=== PATIENT | female | born 1980 | race Caucasian/White ===

== ENCOUNTER 2022-12-04 06:10 | Emergency (ER) | payer OTHER, SELFPAY ==
--- NOTE | ~2022-12-04 | CT_ITS ---
EXAMINATION: CT ABDOMEN AND PELVIS WITH CONTRAST CLINICAL INFORMATION: Bilateral flank pain, fevers and urinary tract infection COMPARISON: None available. TECHNIQUE: Multidetector volumetric images were obtained from the superior aspect of the liver through the pubic symphysis following administration 85 mL of Omnipaque 350 intravenous contrast. Sagittal and coronal reformatted images were obtained on the technologist's workstation. Oral contrast: No This CT examination was performed using dose optimization techniques as appropriate, variously including the following: *Automated exposure control *Adjustment of mA and/or kV according to patient size (this includes techniques or standardized protocols for targeted exams where dose is matched to indication/reason for exam; i.e. extremities or head) *Use of iterative reconstruction technique DLP: 334 mGy-cm FINDINGS: A shunt catheter extends from above the level of this abdominal CT and terminates in the right upper quadrant. No collection is detected at the tip of the catheter. LUNG BASES: There is a small right pleural effusion. LIVER, GALLBLADDER, AND BILIARY TREE: The liver is normal in size, shape, and attenuation. No focal hepatic lesion or biliary ductal dilatation is present. The gallbladder is unremarkable with no evidence of radiopaque gallstones, gallbladder wall thickening, or obvious pericholecystic inflammatory changes. PANCREAS: There is a 13 mm low-density mass in the medial limb of the left adrenal gland. SPLEEN: Unremarkable. ADRENAL GLANDS: Unremarkable. KIDNEYS AND URETERS: The kidneys are normal in size, shape, and attenuation. No hydronephrosis, hydroureter, or calculi seen. No perinephric stranding. BLADDER: The urinary bladder is incompletely distended but markedly irregular and thickened, and there is a suggestion of an ulcerated intraluminal mass along the left lateral wall, with the wall thickened up to 20 mm at this site. There is some infiltration of the adjacent left lateral perivesical fat. GASTROINTESTINAL TRACT: There is marked fecal distention of the rectum, with a luminal diameter measuring up to 7.1 cm. Fecal material also fills the cecum, ascending, transverse and descending colon. No dilated small bowel loops are evident. The appendix is unremarkable. ABDOMINAL WALL: No significant hernia is appreciated. LYMPH NODES: Normal. Nonenlarged bilateral inguinal nodes are present. A 6 mm left external iliac lymph node does not meet size criteria for adenopathy but is notably at the level of the left bladder wall irregularity VASCULAR: Unremarkable. PELVIC VISCERA: The uterus is enlarged, noting a 37 mm ovoid mass in the right side of the myometrium and considerable heterogeneity of the left side of the metacarpal myometrium at the uterine fundus. Endocervical nabothian cyst formation is present. A crenulated follicle is evident in the left adnexa and a few punctate calcifications in the right adnexa, but no suspicious adnexal masses are evident. OSSEOUS STRUCTURES: Right-sided spondylolysis is evident at L5. Spina bifida occulta is evident at the lumbosacral level. CT/CT abdomen pelvis w IV con IMPRESSION: 1. Irregularly thickened urinary bladder with a suggestion of an ulcerating mass and left perivesicle infiltration along the left lateral wall. Although perhaps due to a cystitis, bladder carcinoma is to be excluded. Urologic correlation is recommended. 2. Small right pleural effusion. 3. Left adrenal 13 mm mass is statistically likely to reflect an adenoma. 4. Marked fecal distention of the rectum and fecal filling of the entire colon other than a short segment of collapsed sigmoid. 5. Spina bifida occulta at the lumbosacral level and right spondylolysis at L5. 6. Enlarged heterogeneous uterus with a dominant fibroid in the right side of the fundus and heterogeneous myometrium on the left, either on the basis of small fibroids or perhaps adenomyosis. [employer] correlation and management are recommended. The above urgent findings were discussed with RAJIV Herron at the time of interpretation on 12/04/2022 at 9:35 AM Fleischner guidelines were followed.
[2022-12-04 06:21] VITALS: BP 115/75; PULSE 82; RESP 18; TEMP 37.2; O2SAT 97; BMI 31.5
--- NOTE | 2022-12-04 06:45 | PC.NURSE ---
Pt wheeled in via personal W/C. A&Ox4, reports hematuria, cloudy urine, pain and burning with urination, 10/10 lower ABD pain radiating to bilateral flank pain x 1 month. Pt self catheterize for urine sample. Urine yellow and clear. Urine sample collected and sent to lab.
--- NOTE | 2022-12-04 06:47 | ED_ITS ---
HPI - Female Genitourinary General Chief complaint: Urogenital-Female Stated complaint: bladder pain, possible UTI Time Seen by Provider: 12/04/22 06:37 Source: patient Mode of arrival: ambulatory Limitations: no limitations History of Present Illness HPI Narrative: This is a 41 year old female with a history of spina bifida who straight caths presents w/ hematuria, cloudy urine, dysuria, and flank pain bilaterally radiating to abdomen (subrapubic region) X1 month not improving. Reports flank pain is worse on the right. Patient has tried herbal remedies and OTC with little to no relief. No a/c fevers, chills, cp, sob, nausea, vomiting, headache, vision changes, changes in bowel habits. Related Data Previous Rx's Medication Instructions Recorded docusate sodium 100 mg capsule 100 mg PO BID #20 caps 12/04/22 (Colace) levofloxacin 500 mg tablet 500 mg PO DAILY 7 days #7 tabs 12/04/22 phenazopyridine 100 mg tablet 200 mg (2 x 100 mg) PO TID 2 days 12/04/22 (Pyridium) #6 tabs polyethylene glycol 3350 17 17 g PO BID PRN constipation #238 12/04/22 gram/dose oral powder (Miralax) grams sennosides 8.6 mg tablet (senna) 8.6 mg PO BEDTIME #14 tabs 12/04/22 Allergies Allergy/AdvReac Type Severity Reaction Status Date / Time NSAIDS (Non-Steroidal Allergy Severe ANAPHYLAXIS Verified 12/04/22 06:31 Anti-Inflamma [NSAIDS (NON-STEROIDAL ANTI-INFLAMMA] latex [LATEX] Allergy Unknown ANAPHYLAXIS Verified 12/04/22 06:31 Review of Systems 2 Review of Systems: Constitutional : No Weight loss, No Fever, No Chills, No Fatigue, No Malaise ENT/Mouth : No sore throat, No Rhinorrhea Eyes: No Eye Pain, No Swelling, No Redness Cardiovascular : No Chest Pain, No SOB, No Dyspnea on Exertion, No Orthopnea, No Edema, No Palpitations Respiratory : No Cough, No Sputum, No Wheezing Gastrointestinal : No Nausea, No Vomiting, No Diarrhea, No Constipation, + abdominal Pain, No Hematochezia, No Melena Genitourinary : + Dysuria, + Urinary Frequency, + Hematuria, Musculoskeletal : No joint pain, No Myalgias, No Joint Swelling Skin : No Skin Lesions, No rash Neuro : No Weakness, No Numbness, No Dizziness, No Headache Psych : No Anxiety/Panic, No Depression All other systems reviewed and are negative Yes all other systems are reviewed and are negative [facility] Past Medical History Attestation statement: The following information was validated with the patient. Source: old records reviewed and nursing notes reviewed Social History Social History Alcohol intake: current Alcohol intake frequency: holidays/special occasions only Smoked in Last 30 Days: No Use of substances other than those prescribed or required for medical reasons: Yes Substance Use Type: Marijuana Advance Directives: No Advance Directives Information Provided: Yes Patient : No Physical Exam 2 Vital Signs: Vital Signs: Last Vital Signs Temp 98.9 F 12/04/22 09:30 Pulse 69 12/04/22 09:30 Resp 17 12/04/22 09:30 BP 115/78 12/04/22 09:30 Pulse Ox 99 12/04/22 09:30 O2 Del Method Room Air 12/04/22 09:30 BMI result Body Mass Index 31.5 vss Appearance: Alert.? Oriented X3.? No acute distress.? Head: Normocephalic, atraumatic, no step-offs or deformities Eyes: Pupils equal, round and reactive to light.? ENT: Pharynx normal.? Neck: Normal inspection.? Neck supple.? CVS: Normal heart rate and rhythm.? Pulses normal.? Respiratory: No respiratory distress.? Breath sounds normal.? Abdomen: Soft and RLQ tenderness on exam.? Skin: Skin warm and dry.? Normal skin color.? Normal skin turgor.? Extremities: No lower extremity edema.? No calf ttp. 5/5 strength to bilateral upper and lower extremities Back: + right sided CVA tenderness bilaterally Neuro: Oriented X 3.? No motor deficit.? No sensory deficit. CN 2-12 intact Course Reevaluation(s) Reevaluation #1: CBC with leukocytosis 14.1, no left shift. Chemistry with no acute findings requiring intervention. Patient's UA with positive nitrates and leukocyte esterases as well as blood and bacteria, concerning for UTI, due to patient's symptoms of flank pain and positive urine will obtain CT with contrast to rule out pyelonephritis. Time: 07:47 Reevaluation #2: CT of abdomen and pelvis concerning for possible cystitis vs blader cancer. Time: 09:36 Reevaluation #3: CT abdomen pelvis with the regularly thickened urinary bladder was suggestion of ulcerating mass and left perivesical infiltration along the left lateral wall likely cystitis although bladder carcinoma can not be excluded. Small right pleural effusion no URI sx, sob or CP. Constipation noted on CT scan will give stool softners. Plan dc home w/ urology and pCp follow up. Educated patient on diagnosis and treatment plan, answered all question, patient verbalizes understanding. At this time patient will be discharged home, advised to return with new or worsening symptoms. Educated on worrisome signs and symptoms and when to return. At this time I feel comfortable discharge home. I did go over warnings/black box warning of Levaquin. Time: 10:06 Medications Administered Discontinued Medications Generic Name Dose Route Start Last Admin Trade Name Freq PRN Reason Stop Dose Admin Acetaminophen 650 mg 12/04/22 06:59 12/04/22 07:16 Acetaminophen 325 Mg Tablet PO 12/04/22 07:00 650 mg ONCE ONE Administration Ceftriaxone Sodium 1 gm/ 50 mls @ 100 mls/hr 12/04/22 07:44 12/04/22 09:09 Sodium Chloride IV 12/04/22 08:13 Infused ONCE ONE Infusion Iohexol 100 ml 12/04/22 08:31 12/04/22 08:31 Iohexol 350 Mg/Ml 100 Ml Infus..Btl IV 12/04/22 08:32 85 ml ONCE ONE Administration Medical Decision Making Medical Decision Making [facility] Narrative: 0640 41 year old female presents w/ uti sx and b/l flank pain R>L X 1 month PE r. sided cva tenderness and lower abd tenderness on R This is likely UTI versus cystitis versus nephrolithiasis vs appendicitis. Unlikely obstructing uropathy, acute abdomen. Will rule out electrolyte abnormalities Plan- ct dry to/ r/o stones, labs, urine Differential Diagnosis Differential Diagnoses: The differential diagnosis associated with the presentation includes This is likely UTI versus cystitis versus nephrolithiasis vs appendicitis. Unlikely obstructing uropathy, acute abdomen. Will rule out electrolyte abnormalities Admission/Observation Consideration of admission/observation: Escalation of care including admission/observation considered unlikely Consult Healthcare Provider Management of the patient was discussed with: Horse Trainer (urology Dr. Aguillon) CT/CT abdomen pelvis w IV con IMPRESSION: 1. Irregularly thickened urinary bladder with a suggestion of an ulcerating mass and left perivesicle infiltration along the left lateral wall. Although perhaps due to a cystitis, bladder carcinoma is to be excluded. Urologic correlation is recommended. 2. Small right pleural effusion. 3. Left adrenal 13 mm mass is statistically likely to reflect an adenoma. 4. Marked fecal distention of the rectum and fecal filling of the entire colon other than a short segment of collapsed sigmoid. 5. Spina bifida occulta at the lumbosacral level and right spondylolysis at L5. 6. Enlarged heterogeneous uterus with a dominant fibroid in the right side of the fundus and heterogeneous myometrium on the left, either on the basis of small fibroids or perhaps adenomyosis. DIRECTOR INVESTMENT BANKING correlation and management are recommended. The above urgent findings were discussed with RAJIV Herron at the time of interpretation on 12/04/2022 at 9:35 AM Fleischner guidelines were followed. Lab Data MDM Lab Attestation statement: I reviewed the patient's lab results. 12/04/22 07:09 12/04/22 07:09 Labs: Lab Results 12/04/22 12/04/22 12/04/22 Range/Units 06:40 07:09 07:55 WBC 14.1 H (4.8-10.8) X10*3/uL RBC 4.96 (4.20-5.50) X10*6/uL Hgb 15.5 (12.0-16.0) g/dl Hct 45.7 (37.0-47.0) % MCV 92.1 (80.0-98.0) fL MCH 31.3 (27.0-33.0) pg MCHC 33.9 (31.0-35.0) g/dl RDW 13.2 (11.0-16.0) % Plt Count 304 (160-400) X10*3/uL MPV 11.1 (9.4-12.3) fL Immature Gran % (Auto) 0.4 (0.0-0.4) % Neut % (Auto) 67.8 (45-73) % Lymph % (Auto) 24.5 (20-40) % [place] % (Auto) 5.9 (2-11) % Eos % (Auto) 1.0 (0-4) % Baso % (Auto) 0.4 (0-2) % Lymph # (Auto) 3.5 (1.2-4.9) X10*3/uL [place] # (Auto) 0.8 (0.1-1.2) X10*3/uL Eos # (Auto) 0.1 (0.0-0.4) X10*3/uL Baso # (Auto) 0.1 (0.0-0.2) X10*3/uL Abs Immat Gran (auto) 0.06 H (0.00-0.03) X10*3/uL Absolute Neuts (auto) 9.6 H (2.0-8.3) x10*3/uL Absolute Nucleated RBC 0.000 (0.0-0.012) X10*3/uL Nucleated RBC % (auto) 0.0 (0.0-0.2) /100WBC Sodium 142 (135-145) mmol/L Potassium 4.0 (3.3-5.1) mmol/L Chloride 111 H (96-108) mmol/L Carbon Dioxide 22 (22-29) mmol/L Anion Gap 13 (12-20) BUN 13 (9-16) mg/dL Creatinine 0.63 (0.5-1.4) mg/dL Estim Creat Clear Calc 103.9 Estimated GFR > 60 Random Glucose 104 (60-115) mg/dL Lactic Acid 1.0 (0.5-2.0) mmol/L Calcium 9.6 (8.4-10.2) mg/dL Total Bilirubin 0.3 (0.0-1.0) mg/dL AST 11 (5-31) U/L ALT 8 (0-31) U/L Alkaline Phosphatase 82 (39-117) U/L Total Protein 7.6 (6.5-8.0) g/dL Albumin 4.5 (3.5-5.0) g/dL Lipase 22 (8-78) U/L Urine Color Yellow Urine Appearance Clear Urine pH 7.5 (5.0-9.0) Ur Specific [place] <= 1.005 (1.005-1.025) Urine Protein 30 (1+) H (Neg-Trace) mg/dL Urine Glucose (UA) Negative (Negative) mg/dL Urine Ketones Negative (Negative) mg/dL Urine Blood Moderate (2+) H (Negative) Urine Nitrite Positive H (Negative) Ur Leukocyte Esterase Large (3+) H (Negative) Urine RBC 0-2 (0-2) /HPF Urine WBC 11-20 H (0-5) /HPF Ur Squamous Epith Cells 0-2 (0-2) /HPF Urine Bacteria 2+ (None Seen) Hyaline Casts 0-2 (0-2) /LPF Urine Test NEGATIVE (NEGATIVE) Independent Interpretation I performed an independent interpretation of an: CT Scan Radiology Impression Discussion of test interpretation with radiology: I have reviewed the radiologist's reading. Critical Care Time Critical Care Time Critical Care Time: No Discharge Plan Discharge Clinical Impression: Urinary tract infection, Abnormal abdominal CT scan, Constipation Patient Disposition: Home, Self-Care Instructions: Urinary Tract Infection in Women (ED) Additional Instructions: Take your medications as prescribed. If you were prescribed antibiotics today, it is important that you take your medication to their entirety, do not skip any doses, do not finish them early. Follow-up with your primary care provider this week. Return to the emergency department with new or worsening symptoms. Such as fevers, chills, chest pain, shortness of breath, nausea, vomiting, dizziness, headache, vision changes, lethargy In case of emergency call 911 Levaquin is an antibiotic that belongs to the class of fluoroquinolones, known to have a black box warning for tendon rupture as discussed, explained to tendons arises please discontinue antibiotics and seek medical attention immediately. Please take this antibiotic with food Follow up with Urology call today to make an appointment CT/CT abdomen pelvis w IV con IMPRESSION: 1. Irregularly thickened urinary bladder with a suggestion of an ulcerating mass and left perivesicle infiltration along the left lateral wall. Although perhaps due to a cystitis, bladder carcinoma is to be excluded. Urologic correlation is recommended. 2. Small right pleural effusion. 3. Left adrenal 13 mm mass is statistically likely to reflect an adenoma. 4. Marked fecal distention of the rectum and fecal filling of the entire colon other than a short segment of collapsed sigmoid. 5. Spina bifida occulta at the lumbosacral level and right spondylolysis at L5. 6. Enlarged heterogeneous uterus with a dominant fibroid in the right side of the fundus and heterogeneous myometrium on the left, either on the basis of small fibroids or perhaps adenomyosis. [employer] correlation and management are recommended. Prescriptions: New levofloxacin 500 mg tablet 500 mg PO DAILY 7 Days Qty: 7 0RF phenazopyridine [Pyridium] 100 mg tablet 200 mg PO TID 2 Days Qty: 6 0RF docusate sodium [Colace] 100 mg capsule 100 mg PO BID Qty: 20 0RF polyethylene glycol 3350 [Miralax] 17 gram/dose powder 17 g PO BID PRN (Reason: constipation) Qty: 238 0RF sennosides [senna] 8.6 mg tablet 8.6 mg PO BEDTIME Qty: 14 0RF Referrals: [facility] [place] Group] - 1 day Faiza Renteria [Primary Care Provider] - 2 days Stand Alone Forms: Work/School Release
[2022-12-04 06:51] LABS: UPreg QC Valid YES; Urine Pregnancy NEGATIVE (NEGATIVE)
--- OUTSIDE RECORDS SUMMARY | 2022-12-04 06:59 | XMS_ITS | Continuity of Care Document ---
Author Name Unknown Organization [facility] Address Unknown Care Team Providers Care Traffic Manager Name Role Phone Myra DURAN, Faiza Primary Care Physician Encounter [facility] Date(s): 08/13/21 - 09/12/21 [facility] Attending Physician: Admtr, Adrienne Admitting Physician: Admtr, Ar8 Referring Physician: Admtr, Ar8 Allergies, Adverse Reactions, Alerts Substance Reaction Severity Status ibuprofen HIVES Severe Active aspirin Active Advil Active Latex HIVES Moderate Active Tape 1 Active NSAIDs Active 1surgerical tape Immunizations Given and Recorded Vaccine Date Status Refusal Reason influenza virus vaccine, inactivated 02/22/18 Give n tetanus/diphtheria/pertussis, acel(Tdap) 02/22/18 Given Medications Catheter Supplies See Instructions, # 180 each, Refills 11, Tot. Refills 11, Maintenance, 10 [place] STraight Catheter. Dx: Neurogenic Bladder N31.9. 6 per day, 09/10/21 14:54:00 EDT, Compound Start Date: 09/10/21 Status: Ordered cyclobenzaprine 5 mg oral tablet 1 tablet, By Mouth, Daily, PRN NEEDED FOR MUSCLE SPASM, do not take tramadol when taking this medication, # 30 tablet, 3 Refills, Maintenance, 12/27/20 18:06:00 EDT, [id number], 152.4, cm,12/19/20 9:56:00 EDT, Height Start Date: 12/27/20 Status: Ordered DHEA 25 mg oral tablet 1 tablet = 25 mg, By Mouth, Daily, # 30 tablet, 3 Refills, Maintenance, 05/14/21 12:17:00 EST, Tablet, [id number], Partial fill upon patient request if the prescription is for a schedule II opioid drug., 152.4, cm, 04/17/21 16:41:00 EST, Height Start Date: 05/14/21 Status: Ordered Disposable underpads/Bed pads Disposable underpads/Bed pads, See Instructions, # 180 each, Refills 11, Tot. Refills 11, Maintenance, - 6 daily dx: neurogenic bladder. N31.9, 04/16/20 12:00:00 EST, Compound Start Date: 04/16/20 Status: Ordered epinephrine 0.3 mg injectable solution = 0.3 mg, Intramuscular, Once, Use as directed. After using it go to the ER or call 911, # 1 units,0 Refills, Soft Stop, 08/03/18 10:51:49 EDT, This is [facility] generic of Epipen Start Date: 08/03/18 Status: Ordered evaluation for offloading evaluation for offloading, See Instructions, # 1 each, Refills 0, Tot. Refills 0, Maintenance, chronic Left plantar foot ulcer, 09/21/18 10:08:59 EDT, Compound Start Date: 09/21/18 Status: Ordered gabapentin 300 mg oral capsule 300 mg, 1, capsule, By Mouth, 2 times a day, as prescribed by Dr. Hilton from the [facility], # 180 capsule, Refills 3, Tot. Refills 3, Maintenance, 12/19/20 10:58:00 EDT, Route to Pharmacy Electronically, [id number], Partial fill upon patient requ... Start Date: 12/19/20 Stop Date: 12/14/21 Status: Ordered naloxone 4 mg/0.1 mL nasal spray See Instructions, 4 mg(contents of 1 nasal spray) as a single dose in one nostril; may repeat every2 to 3 minutes in alternating nostrils until medical assistance becomes available., # 4 each, 0 Refills, Soft Stop, 12/27/20 18:08:00 EDT, [facility] Start Date: 12/27/20 Status: Ordered Poise 12 hour Heavy Duty Poise 12 hour Heavy Duty, See Instructions, # 150 each, Refills 11, Tot. Refills 11, Maintenance, dx: neurogenic bladder. N31.9, 04/16/20 12:02:00 EST, Compound Start Date: 04/16/20 Status: Ordered Pull Ups- size medium Pull Ups- size medium, See Instructions, # 60 each, Refills 11, Tot. Refills 11, Maintenance, to use at bedtime. Dx: neurogenic bladder, 04/16/20 12:03:00 EST, Supply Start Date: 04/16/20 Status: Ordered sertraline 50 mg oral tablet 1 tablet, By Mouth, Daily, # 90 tablet, 3 Refills, Maintenance, 12/19/20 10:58:00 EDT, [facility]/pharmacy#[id number], 152.4, cm, 12/19/20 9:56:00 EDT, Height Start Date: 12/19/20 Stop Date: 12/14/21 Status: Ordered traMADol 50 mg oral tablet 1 tablet = 50 mg, By Mouth, Every 8 hours, Dr. Hilton from [facility], # 90 tablet, 5 Refills, Maintenance, 01/24/21 9:58:00 EDT, Partial fill upon patient request if the prescription is for a schedule IIopioid drug. Start Date: 01/24/21 Stop Date: 02/23/21 Status: Ordered Problem List Condition Effective Dates Status Health Status Inform ant Screening for cervical cancer(Confirmed) 1 Active Cigarette smoker(Confirmed) 2, 3 Active Depression(Confirmed) 09/27/07 Active Family history of breast cancer(Confirmed) 4 Active Immune to hepatitis B(Confirmed) Active Hidradenitis suppurativa(Confirmed) Active Hyperlipidemia(Confirmed) Active Neurogenic bladder(Confirmed) Active Obese class I(Confirmed) Active Left leg pain(Confirmed) 5, 6 Active *[id number] Care Partn patrice Murphy(Confirmed) Active Spina bifida(Confirmed) 01/21/07 Active Urinary incontinence(Confirmed) 7 Active 1-Negative. May 2016 2-restarted smoking 3-quit in January 2017 4-in mother. TAHIR, BRCA1, BRCA2, CDH1, CHEK2, PALB2, PTEN and TP53 genes were negative 5-Xray November 2016: Large joint effusion and severe osteoarthritis but no other acute abnormality. 6-Hx of osteomyelitis in left foot in 2007 -CT scans and X-rays of left lower extremity (scanned in [facility]). 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
--- OUTSIDE RECORDS SUMMARY | 2022-12-04 06:59 | XMS_ITS | Continuity of Care Document ---
Author Name Unknown Organization [facility] Address Unknown Care Team Providers Care Electronics System Mechanic Name Role Phone Myra DURAN, Faiza Primary Care Physician [id number] Date(s): 05/14/21 - 06/19/21 [facility] Attending Physician: Faiza Renteria MD Admitting Physician: Faiza Renteria MD Allergies, Adverse Reactions, Alerts Substance Reaction Severity Status ibuprofen HIVES Severe Active aspirin Active Advil Active Latex HIVES Moderate Active Tape 1 Active NSAIDs Active 1surgerical tape Immunizations Given and Recorded Vaccine Date Status Refusal Reason influenza virus vaccine, inactivated 02/22/18 Give n tetanus/diphtheria/pertussis, acel(Tdap) 02/22/18 Given Medications Catheter Supplies See Instructions, # 180 units, Refills 11, Tot. Refills 11, Maintenance, 10 [place] STraight Catheter. Dx: Neurogenic Bladder. 6 per day, 03/11/18 17:08:23 EST, Compound Start Date: 03/11/18 Status: Ordered cyclobenzaprine 5 mg oral tablet [...] Soft Stop, 08/03/18 10:51:49 EDT, This is [facility] [place] generic of Epipen Start Date: 08/03/18 Status: [...] 12/19/20 10:58:00 EDT, Route to Pharmacy Electronically, [facility]/pharmacy [facility][id number], Partial fill upon patient requ... Start [...] tablet, 3 Refills, Maintenance, 12/19/20 10:58:00 EDT, [id number], 152.4, cm, 12/19/20 9:56:00 EDT, Height Start [...] Active Left leg pain(Confirmed) 5, 6 Active [id number] Care Partn patrice Ruthy Murphy(Confirmed) Active Spina bifida(Confirmed) 01/21/07 Active Urinary [...] History Type Response Smoking Status 5-9 cigarettes (jimi eekylah 1/4 to 1/2 pack)/day in last 30 days; Type: Cigarettes; Tobacco use times per day: 4 cigs in a good day more than 5 on bad days; Started at age: 25; entered on: 08/03/18 Sex
--- OUTSIDE RECORDS SUMMARY | 2022-12-04 06:59 | XMS_ITS | Continuity of Care Document ---
Author Name Unknown Organization [facility] Address Unknown Care Team Providers Care Mechanical Equipment Test Engineer Name Role Phone Myra DURAN, Faiza Primary Care Physician Encounter [facility] [id number] Date(s): 12/24/20 - 01/23/21 [facility] Attending Physician: AdmtrAdrienne Allergies, Adverse Reactions, Alerts Substance Reaction Severity Status ibuprofen HIVES Severe Active aspirin Active Advil Active NSAIDs Active Latex HIVES Moderate Active Tape 1 Active 1surgerical tape Immunizations Given and Recorded Vaccine Date Status Refusal Reason influenza virus vaccine, inactivated 02/22/18 Give n tetanus/diphtheria/pertussis, acel(Tdap) 02/22/18 Given Medications Catheter Supplies See Instructions, # 180 units, Refills 11, Tot. Refills 11, Maintenance, 10 [place] STraight Catheter. Dx: Neurogenic Bladder. 6 per day, 03/11/18 17:08:23 EST, Compound Start Date: 03/11/18 Status: Ordered cyclobenzaprine 5 mg oral tablet 1 tablet, By Mouth, Daily, PRN NEEDED FOR MUSCLE SPASM, do not take tramadol when taking this medication, # 30 tablet, 3 Refills, Maintenance, 12/27/20 18:06:00 EDT, [id number], 152.4, cm,12/19/20 9:56:00 EDT, Height Start Date: 12/27/20 Status: Ordered Disposable underpads/Bed pads Disposable underpads/Bed [...] Soft Stop, 08/03/18 10:51:49 EDT, This is [facility] generic of Epipen Start Date: 08/03/18 Status: [...] 12/19/20 10:58:00 EDT, Route to Pharmacy Electronically, [facility]/pharmacy #[id number], Partial fill upon patient requ... Start [...] Date: 12/19/20 Stop Date: 12/14/21 Status: Ordered tolterodine 4 mg oral capsule, extended release 1 capsule, By Mouth, Daily, # 90 capsule, 2 Refills, Maintenance, 09/26/20 13:11:00 EDT, [id number], 152.4, cm, 05/17/20 11:30:00 EST, Height Start Date: 09/26/20 Status: Ordered traMADol 50 mg oral tablet 1 tablet = 50 mg, By Mouth, 3 times a day, PRN knee pain, covering for Yobani Elena from the [facility], #90 tablet, 0 Refills, Maintenance, 12/19/20 10:59:00 EDT, [id number], Partial fill upon patient request if the prescription is for a schedule I... Start Date: 12/19/20 Status: Ordered Problem List Condition Effective Dates Status Health Status Inform ant Screening for cervical cancer(Confirmed) 1 Active Cigarette smoker(Confirmed) 2, 3 Active Depression(Confirmed) 09/27/07 Active Family history of breast cancer(Confirmed) 4 Active Immune to hepatitis B(Confirmed) Active Hidradenitis suppurativa(Confirmed) Active Hyperlipidemia(Confirmed) Active Neurogenic bladder(Confirmed) Active Left leg pain(Confirmed) 5, 6 Active *[phone] Care Partn patriec RamseyRuthy Jeffrey(Confirmed) Active Spina bifida(Confirmed) 01/21/07 Active Urinary incontinence(Confirmed) [...]
--- OUTSIDE RECORDS SUMMARY | 2022-12-04 06:59 | XMS_ITS | Continuity of Care Document ---
Author Name Unknown Organization [facility] Address [address] [place] [address]- Care Team Providers Care Food Technologist Name Role Phone Myra DURAN, Faiza Primary Care Physician ( [phone] [place] [facility] [place]22[place]22 - 08/21/22 [facility]/[address] [address]- [place] Allergies, Adverse Reactions, Alerts Substance Reaction Severity Status ibuprofen HIVES Severe Active aspirin Active Advil Active Latex HIVES Moderate Active Tape 1 Active NSAIDs Active 1surgerical tape Immunizations Given and Recorded Vaccine Date Status Refusal Reason influenza virus vaccine, inactivated 02/22/18 Give n tetanus/diphtheria/pertussis, acel(Tdap) 02/22/18 Given Medications Catheter Supplies See Instructions, # 180 each, Refills 11, Tot. Refills 11, Maintenance, 10 Stateless STraight Catheter. Dx: Neurogenic Bladder N31.9. 6 per day, 05/23/22 13:06:00 EST, Compound Start Date: 05/23/22 Status: Ordered cyclobenzaprine 10 mg oral tablet 10 mg, 1, tablet, By Mouth, Daily at bedtime, DO NOT TAKE TRAMADOL AT BEDTIME., # 90 tablet, Refills 0, Tot. Refills 0, Maintenance, 07/11/22 16:45:00 EDT, Route to Pharmacy Electronically, [facility] #[id number], Partial fill upon patient reques... Start Date: 07/11/22 Status: Ordered Disposable underpads/Bed pads (peach or pink color) Disposable underpads/Bed pads (peach or pink color), See Instructions, # 180 each, Refills 11, Tot.Refills 11, Maintenance, - 6 daily dx: neurogenic bladder. N31.9, 05/23/22 12:07:00 EST, Compound Start Date: 05/23/22 Status: Ordered EpiPen 2-Ben 0.3 mg injectable kit = 0.3 mg, Intramuscular, Once, Use as directed. After using it go to the ER or call 911, # 2 pack/packet, 0 Refills, Soft Stop, 10/25/21 11:46:00 EDT, [facility]/pharmacy #[id number], Partial fill upon patient request if the prescription is for a schedule II opioi... Start Date: 10/25/21 Status: Ordered escitalopram 5 mg oral tablet 1 tablet = 5 mg, By Mouth, Daily, CORRECT DOSE. ONE TABLET DAILY, # 90 tablet, 0 Refills, Maintenance, 07/11/22 16:44:00 EDT, Tablet, [facility] #[id number], Partial fill upon patient request ifthe prescription is for a schedule II opioid drug.,... Start Date: 07/11/22 Stop Date: 10/09/22 Status: Ordered evaluation for offloading evaluation for offloading, See Instructions, # 1 each, Refills 0, Tot. Refills 0, Maintenance, chronic Left plantar foot ulcer, 09/21/18 10:08:59 EDT, Compound Start Date: 09/21/18 Status: Ordered folic acid 1 mg oral tablet 3 mg, 3, tablet, By Mouth, Daily, Take 3 tabs/d in addition to vits., # 270 tablet, Refills 3, Tot. Refills 3, Maintenance, 07/24/22 12:08:00 EDT, Route to Pharmacy Electronically, [facility] #[id number], pt at increased risk for preg w/... Start Date: 07/24/22 Stop Date: 07/19/23 Status: Ordered Lotrimin AF 1% topical cream 1 application, Topically, 2 times a day, for 21 days, # 30 Gm, 2 Refills, Acute 09/22/22 17:07:00 EDT, 07/21/22 17:07:00 EDT, Cream, [facility] #[id number], Partial fill upon patient request if the prescription is for a schedule II opioid drug.,... Start Date: 07/21/22 Stop Date: 09/22/22 Status: Ordered naloxone 4 mg/0.1 mL nasal spray See Instructions, 4 mg(contents of 1 nasal spray) as a single dose in one nostril; may repeat every2 to 3 minutes in alternating nostrils until medical assistance becomes available., # 4 each, 0 Refills, Soft Stop, 12/27/20 18:08:00 EDT, [facility]/pharmacy... Start Date: 12/27/20 Status: Ordered Poise 12 hour Heavy Duty Poise 12 hour Heavy Duty, See Instructions, # 150 each, Refills 11, Tot. Refills 11, Maintenance, dx: neurogenic bladder. N31.9, 05/23/22 13:07:00 EST, Compound Start Date: 05/23/22 Status: Ordered Multivitamins with Folic Acid 0.8 mg oral tablet 1 tablet, By Mouth, Daily, take in addition to 3 mg folic acid daily, # 90 tablet, 3 Refills, Maintenance, 07/30/22 17:37:00 EDT, Tablet, [facility] #[id number], 1 tablet By Mouth Daily,x90 days,Instr:take in addition to 3 mg folic acid daily, 15... Start Date: 07/30/22 Stop Date: 07/25/23 Status: Ordered Pull Ups- size medium Pull Ups- size medium, See Instructions, # 60 each, Refills 11, Tot. Refills 11, Maintenance, to use at bedtime. Dx: neurogenic bladder, 05/23/22 13:07:00 EST, Supply Start Date: 05/23/22 Status: Ordered tolterodine 4 mg oral capsule, extended release 1 capsule, By Mouth, Daily, # 90 capsule, 3 Refills, Maintenance, 04/22/22 11:15:00 EST, [facility] #[id number], 152.4, cm, 04/22/22 10:29:00 EST, Height, 71.8, kg, 05/14/21 12:20:00 EST, Dry Weight Start Date: 04/22/22 Status: Ordered traMADol 50 mg oral tablet TAKE 1 TABLET BY MOUTH THREE TIMES A DAY NEEDED FOR PAIN. By Yobani Elena (the ATC) Start Date: 04/22/22 Status: Ordered Problem List Condition Confirmation Course Effective Dates Status H ealth Status Informant Screening for cervical cancer 1 Confirmed Active Depression Confirmed 09/27/07 Active Family history of breast cancer 2 Confirmed Active Immune to hepatitis B Confirmed Active Hidradenitis suppurativa Confirmed Active Hyperlipidemia Confirmed Active Marijuana smoker Confirmed Active Neurogenic bladder Confirmed Active Left leg pain 3, 4 Confirmed Active *[id number]-[id number] ana laura Yuan Confirmed Active Spina bifida Confirmed 01/21/07 Active Urinary incontinence 5 Confirmed Active 1-Negative. May 2016 2-in mother. TAHIR, BRCA1, BRCA2, CDH1, CHEK2, PALB2, PTEN and TP53 genes were negative 3-Xray November 2016: Large joint effusion and severe osteoarthritis but no other acute abnormality. 4-Hx of osteomyelitis in left foot in 2007 -CT scans and X-rays of left lower extremity (scanned in [facility]). 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 - Large spurs - Severe tricompartmental degenerative changes of left knee (07-04-2013) 5-overflow Social History Social History Type Response Smoking Status Former smoker, quit more than 30 days ago; Type: Cigarettes; Tobacco use times per day: 4 cigs in a good day more than 5 on bad days; Started at age: 25; entered on: 04/22/22 Sex Patient Care team information Care Team Personnel Name: Faiza Renteria MD Position: [facility] Physician - Primary Care Member Role: PCP Address: Address: [address] [place] [address]- Care Team Related Persons Name: YANDY GORDON Name: LYDIA SANTIZO Address: home [address] [place] [address] Name: STATES, NO ONE Name: SAMEER INFANTE Address: [place] [address]
--- OUTSIDE RECORDS SUMMARY | 2022-12-04 06:59 | XMS_ITS | Continuity of Care Document ---
Author Name Unknown Organization [facility] Address [address] [place] [address]- Care Team Providers Care Management Information Systems Director Name Role Phone Myra DURAN, Faiza Primary Care Physician Encounter [facility] [place] Date(s): 07/11/22 - 08/10/22 [facility]/[address] [address]- Attending Physician: Admtr, Ar8 Allergies, Adverse Reactions, Alerts [...] Refills 11, Tot. Refills 11, Maintenance, 10 Barbadian STraight Catheter. Dx: Neurogenic Bladder N31.9. 6 per day, 05/23/22 13:06:00 EST, Compound Start Date: 05/23/22 Status: Ordered cyclobenzaprine 10 mg oral tablet 10 mg, 1, tablet, By Mouth, Daily at bedtime, DO NOT TAKE TRAMADOL AT BEDTIME., # 90 tablet, Refills 0, Tot. Refills 0, Maintenance, 07/11/22 16:45:00 EDT, Route to Pharmacy Electronically, [facility] #[id number], Partial fill upon patient reques... Start Date: [...] 0 Refills, Soft Stop, 10/25/21 11:46:00 EDT, [facility]/pharmacy #[id number], Partial fill upon patient request if the prescription is for a schedule II opioi... Start Date: 10/25/21 Status: Ordered escitalopram 5 mg oral tablet 1 tablet = 5 mg, By Mouth, Daily, CORRECT DOSE. ONE TABLET DAILY, # 90 tablet, 0 Refills, Maintenance, 07/11/22 16:44:00 EDT, Tablet, [facility] #[id number], Partial fill upon patient request ifthe prescription [...] 07/24/22 12:08:00 EDT, Route to Pharmacy Electronically, [facility] #[id number], pt at increased risk for preg w/... Start Date: 07/24/22 Stop Date: 07/19/23 Status: Ordered Lotrimin AF 1% topical cream 1 application, Topically, 2 times a day, for 21 days, # 30 Gm, 2 Refills, Acute 09/22/22 17:07:00 EDT, 07/21/22 17:07:00 EDT, Cream, [facility] #[id number], Partial fill upon patient request if the [...] 3 Refills, Maintenance, 07/30/22 17:37:00 EDT, Tablet, [facility] #[id number], 1 tablet By Mouth Daily,x90 days,Instr:take in [...] capsule, 3 Refills, Maintenance, 04/22/22 11:15:00 EST, [facility] #[id number], 152.4, cm, 04/22/22 10:29:00 EST, Height, 71.8, [...] Left leg pain 3, 4 Confirmed Active *[phone]-Adr ana laura Yuan Confirmed Active Spina bifida [...] at age: 25; entered on: 04/22/22 Sex Radiology * Event Display: MRI Ankle/Foot, Non- Authored Date: Patient Care team information Care Team Personnel Name: Faiza Renteria MD Position: [facility] Primary Care Physician Member Role: PCP Address: Address: [address] [place] [address]- Care Team Related Persons Name: YANDY GORDON Name: LYDIA SANTIZO Address: home [address] [place] [address] Name: PT STATES, NO ONE Name: SAMEER INFANTE Address: [place] [address]
--- OUTSIDE RECORDS SUMMARY | 2022-12-04 06:59 | XMS_ITS | Continuity of Care Document ---
Author Name Unknown Organization [facility] [facility] Address [address] [place] [address]- Care Team Providers Care Environmental Designer Name Role Phone Myra DURAN, Faiza Primary Care Physician Encounter [facility] [place] Date(s): 05/15/20 - 06/14/20 [facility] [address] [place] [address]- Allergies, Adverse Reactions, Alerts Substance Reaction Severity Status ibuprofen HIVES Severe Active aspirin Active Advil Active Latex HIVES Moderate Active Tape 1 Active NSAIDs Active 1surgerical tape Immunizations Given and Recorded Vaccine Date Status Refusal Reason influenza virus vaccine, inactivated 02/22/18 Give n tetanus/diphtheria/pertussis, acel(Tdap) 02/22/18 Given Medications atorvastatin 10 mg oral tablet 1 tablet = 10 mg, By Mouth, Daily, # 30 tablet, 3 Refills, Maintenance, 02/02/19 13:35:38 EST Start Date: 02/02/19 Stop Date: 06/02/19 Status: Ordered Catheter Supplies See Instructions, # 180 units, Refills 11, Tot. Refills 11, Maintenance, 10 Gabonese STraight Catheter. Dx: Neurogenic Bladder. 6 per day, 03/11/18 17:08:23 EST, Compound Start Date: 03/11/18 Status: Ordered cyclobenzaprine 5 mg oral tablet 1 tablet, By Mouth, Daily, PRN NEEDED FOR MUSCLE SPASM, # 30 tablet, 3 Refills, Acute, 02/14/20 12:50:00 EST, [facility] [id number], 152.4, cm, 12/30/19 14:27:00 EDT, Height Start Date: 02/14/20 Status: Ordered Disposable underpads/Bed pads Disposable underpads/Bed [...] Soft Stop, 08/03/18 10:51:49 EDT, This is [facility] generic of Epipen Start Date: 08/03/18 Status: Ordered evaluation for offloading evaluation for offloading, See Instructions, # 1 each, Refills 0, Tot. Refills 0, Maintenance, chronic Left plantar foot ulcer, 09/21/18 10:08:59 EDT, Compound Start Date: 09/21/18 Status: Ordered Gauze Pad (2 X 2) See Instructions, # 30 units, Refills 11, Tot. Refills 11, Maintenance, to cover chronic wound of left foot, 04/07/17 13:24:57, Compound Start Date: 04/07/17 Status: Ordered lidocaine 0.5% topical gel 1 application, Topically, 3 times a day, # 120 Gm, 0 Refills, Maintenance, 06/05/20 15:02:00 EDT, Gel, [facility] #[id number], Partial fill upon patient request if the prescription is for a schedule II opioid drug., 1 application Topically 3 times a day,... Start Date: 06/05/20 Status: Ordered oxyCODONE 5 mg oral tablet 5 mg, 1, tablet, By Mouth, Every 8 hours, PRN, as needed for wound foot pain due to debridement. Fill 09/01/19, # 15 tablet, Refills 0, Tot. Refills 0, Maintenance, Pain , Moderate, 09/01/19 18:43:00 EDT, Route to Pharmacy Electronically, [facility]... Start Date: 09/01/19 Status: Ordered Poise 12 hour Heavy Duty [...] tablet 1 tablet, By Mouth, Daily, # 30 tablet, 6 Refills, Maintenance, 03/19/20 12:59:00 EST, [facility] [id number], 152.4, cm, 12/30/19 14:27:00 EDT, Height Start Date: 03/19/20 Status: Ordered Tape (1 -Paper) See Instructions, # 5 units, Maintenance, to use with gauze to cover chronic wound of left foot., 04/07/17 13:24:55, Compound Start Date: 04/07/17 Status: Ordered tolterodine 4 mg oral capsule, extended release 1 capsule, By Mouth, Daily, # 90 capsule, 2 Refills, Maintenance, 07/05/19 11:13:00 EDT, [facility] [id number], 152.4, cm, 06/23/19 13:01:00 EDT, Height Start Date: 07/05/19 Status: Ordered Tylenol Extra Strength 500 mg oral tablet 2 tablet = 1,000 mg, By Mouth, 3 times a day, PRN pain in knees, # 50 tablet, 0 Refills, Maintenance, 02/22/18 14:17:45 EST Start Date: 02/22/18 Status: Ordered Problem List Condition Effective Dates Status Health Status Inform ant Cigarette smoker(Confirmed) 1, 2 Active Depression(Confirmed) 09/27/07 Active Family history of breast cancer(Confirmed) 3 Active Immune to hepatitis B(Confirmed) Active Hidradenitis suppurativa(Confirmed) Active Hyperlipidemia(Confirmed) Active Neurogenic bladder(Confirmed) Active Left leg pain(Confirmed) 4, 5 Active *[phone] Care Partn patrice Murphy(Confirmed) Active Spina bifida(Confirmed) 01/21/07 Active Urinary incontinence(Confirmed) 6 Active 1-restarted smoking 2-quit in January 2017 3-in mother. TAHIR, BRCA1, BRCA2, CDH1, CHEK2, PALB2, PTEN and TP53 genes were negative 4-Xray November 2016: Large joint effusion and severe osteoarthritis but no other acute abnormality. 5-Hx of osteomyelitis in left foot in 2007 -CT scans and X-rays of left lower extremity (scanned in [facility]). 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 - Large spurs - Severe tricompartmental degenerative changes of left knee (07-04-2013) 6-overflow Social History Social History Type Response Smoking Status 5-9 cigarettes (betw een 1/4 to 1/2 pack)/day in last 30 days; Type: Cigarettes; Tobacco use times per day: 4 cigs in a good day more than 5 on bad days; Started at age: 25; entered on: 08/03/18 Sex
--- OUTSIDE RECORDS SUMMARY | 2022-12-04 06:59 | XMS_ITS | Continuity of Care Document ---
Author Name Unknown Organization [facility] Address [address] [place] [id number]- Care Team Providers Care Kiln Tender Name Role Phone Myra DURAN, Faiza Primary Care Physician Encounter [facility] [place] Date(s): 09/03/22 - 10/03/22 [facility]/[address] [address]- [place] Allergies, Adverse Reactions, Alerts Substance Reaction Severity Status ibuprofen HIVES Severe Active aspirin Active Advil Active Latex HIVES Moderate Active Tape 1 Active NSAIDs Active 1surgerical tape Immunizations Given and Recorded Vaccine Date Status Refusal Reason influenza virus vaccine, inactivated 02/22/18 Give n tetanus/diphtheria/pertussis, acel(Tdap) 02/22/18 Given Medications Catheter Supplies See Instructions, # 180 each, Refills 11, Tot. Refills 11, Maintenance, 10 Korean STraight Catheter. Dx: Neurogenic Bladder N31.9. 6 per day, 05/23/22 13:06:00 EST, Compound Start Date: 05/23/22 Status: Ordered cyclobenzaprine 10 mg oral tablet 10 mg, 1, tablet, By Mouth, Daily at bedtime, DO NOT TAKE TRAMADOL AT BEDTIME., # 90 tablet, Refills 0, Tot. Refills 0, Maintenance, 07/11/22 16:45:00 EDT, Route to Pharmacy Electronically, [facility] #[id number], Partial fill upon patient reques... Start Date: [...] 0 Refills, Soft Stop, 10/25/21 11:46:00 EDT, [id number], Partial fill upon patient request if the prescription is for a schedule II opioi... Start Date: 10/25/21 Status: Ordered escitalopram 5 mg oral tablet 1 tablet = 5 mg, By Mouth, Daily, CORRECT DOSE. ONE TABLET DAILY, # 90 tablet, 0 Refills, Maintenance, 07/11/22 16:44:00 EDT, Tablet, [facility] #[id number], Partial fill upon patient request ifthe prescription [...] 07/24/22 12:08:00 EDT, Route to Pharmacy Electronically, [facility] #[id number], pt at increased risk for preg w/... Start Date: 07/24/22 Stop Date: 07/19/23 Status: Ordered naloxone 4 mg/0.1 mL nasal [...] 3 Refills, Maintenance, 07/30/22 17:37:00 EDT, Tablet, [facility] #[id number], 1 tablet By Mouth Daily,x90 days,Instr:take in [...] capsule, 3 Refills, Maintenance, 04/22/22 11:15:00 EST, [facility] #[id number], 152.4, cm, 04/22/22 10:29:00 EST, Height, 71.8, kg, 05/14/21 12:20:00 EST, Dry Weight Start Date: 04/22/22 Status: Ordered traMADol 50 mg oral tablet TAKE 1 TABLET BY MOUTH THREE TIMES A DAY NEEDED FOR PAIN. By Yobani Elena (the ATC) Start Date: 04/22/22 Status: Ordered Wipes Wipes, See Instructions, # 2 each, Refills 11, Tot. Refills 11, Maintenance, 2 boxes/packages per month dx: neurogenic bladder. N31.9, 09/04/22 17:53:00 EDT, Supply Start Date: 09/04/22 Status: Ordered Problem List Condition Confirmation Course Effective Dates Status H ealt Status Informant Screening for cervical cancer 1 Confirmed Active Depression Confirmed 09/27/07 Active Family history of breast cancer 2 Confirmed Active Immune to hepatitis B Confirmed Active Hidradenitis suppurativa Confirmed Active Hyperlipidemia Confirmed Active Marijuana smoker Confirmed Active Neurogenic bladder Confirmed Active Left leg pain 3, 4 Confirmed Active *[id number]-Adr ana laura Yuan Confirmed Active Spina bifida [...] Team Personnel Name: Faiza Renteria MD Position: [facility] Physician - Primary Care Member Role: PCP Address: Address: [address] [place] [address]- Care Team Related Persons Name: YANDY GORDON Name: LYDIA SATNIZO Address: home [address] [place] [address] Name: STATES, NO ONE Name: SAMEER INFANTE Address: [place] [address]
--- OUTSIDE RECORDS SUMMARY | 2022-12-04 06:59 | XMS_ITS | Continuity of Care Document ---
Author Name Unknown Organization [facility] Address [address] [place] [address]- Care Team Providers Care Fruit And Vegetable Parer Name Role Phone Faiza Renteria MD Primary Care Physician Encounter [facility] [place] Date(s): 04/30/19 - 06/05/19 [facility] [address] [place] [address]- [facility] Attending Physician: Arnaldo Crowley MD Admitting Physician: Arnaldo Crowley MD Referring Physician: Faiza Renteria MD Allergies, Adverse Reactions, [...] Refills 11, Tot. Refills 11, Maintenance, 10 Thai STraight Catheter. Dx: Neurogenic Bladder. 6 per day, 03/11/18 17:08:23 EST, Compound Start Date: 03/11/18 Status: Ordered cyclobenzaprine 5 mg oral tablet 1 tablet = 5 mg, By Mouth, Daily, PRN as needed for muscle spasm, # 30 tablet, 1 Refills, Maintenance, 04/15/19 11:28:00 EST, Tablet, [id number], 152.4, cm, 04/06/19 9:31:00 EST, Height Start Date: 04/15/19 Stop Date: 06/14/19 Status: Ordered Disposable underpads/Bed pads Disposable underpads/Bed pads, See Instructions, # 180 units, Refills 0, Tot. Refills 0, Maintenance, - 6 daily dx: neurogenic bladder. N31.9, 03/26/17 12:34:35, Compound Start Date: 03/26/17 Status: Ordered epinephrine 0.3 mg injectable solution = 0.3 mg, Intramuscular, Once, Use as directed. After using it go to the ER or call 911, # 1 units,0 Refills, Soft Stop, 08/03/18 10:51:49 EDT, This is [facility] generic of Epipen Start Date: 08/03/18 Status: [...] 13:24:57, Compound Start Date: 04/07/17 Status: Ordered oxyCODONE 5 mg oral tablet 5 mg, 1, tablet, By Mouth, Every 8 hours, PRN, as needed for pain in wound of foot after debridement. appointment Can refill before appointment, # 15 tablet, Refills 0, Tot. Refills 0, Maintenance, Pain , Moderate, 05/31/19 15:47:00 EDT, Route to Phar... Start Date: 05/31/19 Status: Ordered panty liners for incontinence panty liners for incontinence, See Instructions, # 150 each, Refills 11, Tot. Refills 11, Maintenance, dx: neurogenic bladder. N31.9, 06/01/19 9:42:00 EDT, Compound Start Date: 06/01/19 Status: Ordered sertraline 50 mg oral tablet 1 tablet = 50 mg, By Mouth, Daily, # 30 tablet, 6 Refills, Maintenance, 03/09/19 11:27:00 EST, [facility]/pharmacy #[id number], 152.4, cm, 03/09/19 10:07:00 EST, Height Start Date: 03/09/19 Stop Date: 10/05/19 Status: Ordered Tape (1 -Paper) See Instructions, # 5 units, Maintenance, to use with gauze to cover chronic wound of left foot., 04/07/17 13:24:55, Compound Start Date: 04/07/17 Status: Ordered tolterodine 4 mg oral capsule, extended release 1 capsule = 4 mg, By Mouth, Daily, # 30 capsule, 6 Refills, Maintenance, 03/09/19 11:29:00 EST, [facility]/pharmacy #[id number], 152.4, cm, 03/09/19 10:07:00 EST, Height Start Date: 03/09/19 Status: Ordered Tylenol Extra Strength 500 mg [...] Active Left leg pain(Confirmed) 4, 5 Active *[id number]-[facility] Partn patrice Foster(Confirmed) Active Spina bifida(Confirmed) 01/21/07 Active Urinary incontinence(Confirmed) [...]
--- OUTSIDE RECORDS SUMMARY | 2022-12-04 06:59 | XMS_ITS | Continuity of Care Document ---
Author Name Unknown Organization [facility] Address [address] [place] [address]- Care Team Providers Care Elevator Pilot Name Role Phone Myra DURAN, Faiza Primary Care Physician ( [phone] [place]counter [facility] [place](s): 01/23/22 - 02/22/22 [facility]/[address] [address]- [place] Allergies, Adverse Reactions, Alerts Substance Reaction Severity Status ibuprofen HIVES Severe Active aspirin Active Advil Active Latex HIVES Moderate Active Tape 1 Active NSAIDs Active 1surgerical tape Immunizations Given and Recorded Vaccine Date Status Refusal Reason influenza virus vaccine, inactivated 02/22/18 Give n tetanus/diphtheria/pertussis, acel(Tdap) 02/22/18 Given Medications Catheter Supplies See Instructions, # 180 each, Refills 11, Tot. Refills 11, Maintenance, 10 Palauan STraight Catheter. Dx: Neurogenic Bladder N31.9. 6 per day, 09/10/21 14:54:00 EDT, Compound Start Date: 09/10/21 Status: Ordered cyclobenzaprine 5 mg oral tablet 1 tablet, By Mouth, Daily, PRN NEEDED FOR MUSCLE SPASM, DO NOT TAKE TRAMADOL WHEN TAKING THIS MED, # 30 tablet, 1 Refills, [id number], 152.4, cm, 05/14/21 12:20:00 EST, Height, 71.8, kg, 05/14/21 12:20:00 EST, Dry Weight Start Date: 11/11/21 Status: Ordered DHEA 25 mg oral tablet 1 tablet = 25 mg, By Mouth, Daily, # 30 tablet, 3 Refills, Maintenance, 05/14/21 12:17:00 EST, Tablet, [facility]/pharmacy #1972, Partial fill upon patient request if the prescription is for a schedule II opioid drug., 152.4, cm, 01/26/22 16:41:00 EST, Height Start Date: 05/14/21 Status: Ordered Disposable underpads/Bed pads Disposable underpads/Bed pads, See Instructions, # 180 each, Refills 11, Tot. Refills 11, Maintenance, - 6 daily dx: neurogenic bladder. N31.9, 04/16/20 12:00:00 EST, Compound Start Date: 04/16/20 Status: Ordered EpiPen 2-Ben 0.3 mg injectable kit = 0.3 mg, Intramuscular, Once, Use as directed. After using it go to the ER or call 911, # 2 pack/packet, 0 Refills, Soft Stop, 10/25/21 11:46:00 EDT, [facility], Partial fill upon patient request if the prescription is for a schedule II opioi... Start Date: 10/25/21 Status: Ordered evaluation for offloading evaluation for [...] Daily, # 90 capsule, 3 Refills, Maintenance, 04/18/21 10:00:00 EST, [facility], 152.4, cm, 04/17/21 16:41:00 EST, Height Start Date: 04/18/21 Status: Ordered traMADol 50 mg oral tablet 1 tablet = 50 mg, By Mouth, Every 8 hours, Dr. iHlton from [facility], # 90 tablet, 5 Refills, Maintenance, 01/24/21 9:58:00 EDT, Partial fill upon patient request if the prescription is for a schedule IIopioid drug. Start Date: 01/24/21 Stop Date: 02/23/21 Status: Ordered Problem List Condition Confirmation Course Effective Dates Status H ealth Status Informant Screening for cervical cancer 1 Confirmed Active Cigarette smoker 2, 3 Confirmed Active Depression Confirmed 09/27/07 Active Family history of breast cancer 4 Confirmed Active Immune to hepatitis B Confirmed Active Hidradenitis suppurativa Confirmed Active Hyperlipidemia Confirmed Active Neurogenic bladder Confirmed Active Obese class I Confirmed Active Left leg pain 5, 6 Confirmed Active *[id number] Chief Engineer Ruthy Murphy Confirmed Active Spina bifida Confirmed 01/21/07 Active Urinary incontinence 7 Confirmed Active 1-Negative. May 2016 2-restarted smoking 3-quit [...] at age: 25; entered on: 08/03/18 Sex Patient Care team information Care Team Personnel Name: Faiza Renteria MD Position: S Primary Care Physician Member Role: PCP Address: Address: [address] [place] [address]- [place] Care Team Related Persons Name: YANDY GORDON Name: LYDIA SANTIZO Address: home [address] [place] [address] Name: STATES, NO ONE Name: SAMEER INFANTE Address: [place] [address]
--- OUTSIDE RECORDS SUMMARY | 2022-12-04 06:59 | XMS_ITS | Continuity of Care Document ---
Author Name Unknown Organization [facility] Address [address] [place] [address]- Care Team Providers Care Adjunct Mathematics Instructor Name Role Phone Myra DURAN, Faiza Primary Care Physician Encounter [facility] [place] Date(s): 06/24/22 - 07/24/22 [facility]/[address] [address]- [place] Allergies, Adverse Reactions, Alerts Substance Reaction Severity Status ibuprofen HIVES Severe Active aspirin Active Advil Active Latex HIVES Moderate Active Tape 1 Active NSAIDs Active 1surgerical tape Immunizations Given and Recorded Vaccine Date Status Refusal Reason influenza virus vaccine, inactivated 02/22/18 Give n tetanus/diphtheria/pertussis, acel(Tdap) 02/22/18 Given Medications Catheter Supplies See Instructions, # 180 each, Refills 11, Tot. Refills 11, Maintenance, 10 Cameroonian STraight Catheter. Dx: Neurogenic Bladder N31.9. 6 per day, 05/23/22 13:06:00 EST, Compound Start Date: 05/23/22 Status: Ordered cyclobenzaprine 10 mg oral tablet 10 mg, 1, tablet, By Mouth, Daily at bedtime, DO NOT TAKE TRAMADOL AT BEDTIME., # 90 tablet, Refills 0, Tot. Refills 0, Maintenance, 07/11/22 16:45:00 EDT, Route to Pharmacy Electronically, [facility] #[id number], Partial fill upon patient reques... Start Date: [...] 0 Refills, Soft Stop, 10/25/21 11:46:00 EDT, [facility]/pharmacy #[id number], Partial fill upon patient request if the prescription is for a schedule II opioi... Start Date: 10/25/21 Status: Ordered escitalopram 5 mg oral tablet 1 tablet = 5 mg, By Mouth, Daily, CORRECT DOSE. ONE TABLET DAILY, # 90 tablet, 0 Refills, Maintenance, 07/11/22 16:44:00 EDT, Tablet, [facility] #[id number], Partial fill upon patient request ifthe prescription [...] 07/24/22 12:08:00 EDT, Route to Pharmacy Electronically, [facility] #[id number], pt at increased risk for preg w/... Start Date: 07/24/22 Stop Date: 07/19/23 Status: Ordered Lotrimin AF 1% topical cream 1 application, Topically, 2 times a day, for 21 days, # 30 Gm, 2 Refills, Acute 09/22/22 17:07:00 EDT, 07/21/22 17:07:00 EDT, Cream, [facility] #[id number], Partial fill upon patient request if the [...] 0 Refills, Soft Stop, 12/27/20 18:08:00 EDT, [facility]/pharmacy... Start Date: 12/27/20 Status: Ordered Poise 12 hour Heavy Duty Poise 12 hour Heavy Duty, See Instructions, # 150 each, Refills 11, Tot. Refills 11, Maintenance, dx: neurogenic bladder. N31.9, 05/23/22 13:07:00 EST, Compound Start Date: 05/23/22 Status: Ordered Multivitamins with Folic Acid 5 mg oral kit See Instructions, begin taking now., # 90 capsule, 3 Refills, Maintenance, 07/21/22 16:53:00 EDT, [facility] #[id number], begin taking now., 152.4, cm, 07/21/22 16:23:00 EDT, Height, 71.8, kg, 05/14/21 12:20:00 EST, Dry Weight Start Date: 07/21/22 Status: Ordered Pull Ups- size medium Pull Ups- size medium, See Instructions, # 60 each, Refills 11, Tot. Refills 11, Maintenance, to use at bedtime. Dx: neurogenic bladder, 05/23/22 13:07:00 EST, Supply Start Date: 05/23/22 Status: Ordered tolterodine 4 mg oral capsule, extended release 1 capsule, By Mouth, Daily, # 90 capsule, 3 Refills, Maintenance, 04/22/22 11:15:00 EST, [facility] #[id number], 152.4, cm, 04/22/22 10:29:00 EST, Height, 71.8, [...] Left leg pain 3, 4 Confirmed Active *[id number]-Adr ana laura Yuan Confirmed Active Spina bifida [...] Team Personnel Name: Faiza Renteria MD Position: [facility] Primary Care Physician Member Role: PCP Address: Address: [address] [place] [address]- Care Team Related Persons Name: YANDY GORDON Name: LYDIA SANTIZO Address: home [address] [place] [address] Name: STATES, NO ONE Name: SAMEER INFANTE Address: [place] [address]
--- OUTSIDE RECORDS SUMMARY | 2022-12-04 06:59 | XMS_ITS | Continuity of Care Document ---
Author Name Unknown Organization [facility] Address [address] [place] [address]- Care Team Providers Care New Home Sales Consultant Name Role Phone Myra DURAN, Faiza Primary Care Physician [place] [facility] [place] [place] 10/16/22 - 11/15/[facility] [address] [place] [address] Attending Physician: Admjaime, Adrienne Admitting Physician: Admtr, Adrienne Referring Physician: Admtr, Ar8 Allergies, Adverse Reactions, [...] Refills 11, Tot. Refills 11, Maintenance, 10 Samoan STraight Catheter. Dx: Neurogenic Bladder N31.9. 6 per day, 05/23/22 13:06:00 EST, Compound Start Date: 05/23/22 Status: Ordered cyclobenzaprine 10 mg oral tablet 10 mg, 1, tablet, By Mouth, Daily at bedtime, DO NOT TAKE TRAMADOL AT BEDTIME., # 90 tablet, Refills 0, Tot. Refills 0, Maintenance, 07/11/22 16:45:00 EDT, Route to Pharmacy Electronically, [facility] #[id number], Partial fill upon patient reques... Start Date: 07/11/22 Status: Ordered desvenlafaxine 25 mg oral tablet, extended release 1 tablet = 25 mg, By Mouth, Daily, do not crush or chew, # 30 tablet, 2 Refills, Maintenance, 08/01/23 10:42:00 EDT, ER Tablet, [facility] #[id number], Partial fill upon patient request if the prescription is for a schedule II opioid drug., 152.4... Start Date: 10/21/22 Status: Ordered Disposable underpads/Bed pads (peach or [...] 07/24/22 12:08:00 EDT, Route to Pharmacy Electronically, [facility] #[id number], pt at increased risk for preg w/... [...] 3 Refills, Maintenance, 07/30/22 17:37:00 EDT, Tablet, [facility] #[id number], 1 tablet By Mouth Daily,x90 days,Instr:take in [...] capsule, 3 Refills, Maintenance, 04/22/22 11:15:00 EST, [facility] #[id number], 152.4, cm, 04/22/22 10:29:00 EST, Height, 71.8, [...] Left leg pain 3, 4 Confirmed Active *[id number]-Car e Partner-Kaylee Duarte Confirmed Active Spina bifida Confirmed 01/21/07 Active [...] Care team information Care Team Personnel Name: Myra DURAN, Faiza Position: [facility] Physician - Primary Care Member Role: PCP Address: Address: [address] [place] [address]- Care Team Related Persons Name: YANDY GORDON Name: LYDIA SANTIZO Address: home [address] [place] [address] Name: STATES, NO ONE Name: SAMEER INFANTE Address: [place] [address]
--- OUTSIDE RECORDS SUMMARY | 2022-12-04 06:59 | XMS_ITS | Continuity of Care Document ---
Author Name Unknown Organization [facility] Address [address] [place] [address]- Care Team Providers Care Teletray Operator Name Role Phone Faiza Renteria MD Primary Care Physician Encounter [facility] Date(s): 05/28/19 - 07/03/[facility] [address] [place] [address] [facility] Attending Physician: Arnaldo Crowley MD Admitting Physician: [...] Refills 11, Tot. Refills 11, Maintenance, 10 Polish STraight Catheter. Dx: Neurogenic Bladder. 6 per day, 03/11/18 17:08:23 EST, Compound Start Date: 03/11/18 Status: Ordered cyclobenzaprine 5 mg oral tablet 1 tablet = 5 mg, By Mouth, Daily, PRN as needed for muscle spasm, # 30 tablet, 1 Refills, Maintenance, 06/13/19 16:41:00 EDT, [facility], [facility], 152.4, cm, 06/10/19 11:02:00 EDT, Height Start Date: 06/13/19 Stop Date: 08/12/19 Status: Ordered Disposable underpads/Bed pads Disposable underpads/Bed [...] Soft Stop, 08/03/18 10:51:49 EDT, This is [facility] generic of Epipen Start Date: 08/03/18 [...] foot after debridement. appointment Can refill before appointment. on 07-05-19, # 15 tablet, Refills 0, Tot. Refills 0, Maintenance, Pain , Moderate, 06/30/19 16:57:00 EDT,... Start Date: 06/30/19 Status: Ordered oxyCODONE 5 mg oral tablet 5 mg, 1, tablet, By Mouth, Every 8 hours, PRN, as needed for pain in wound of foot after debridement. appointment Can refill before appointment. on 06-23-19, # 15 tablet, Refills 0, Tot. Refills 0, Maintenance, Pain , Moderate, 06/20/19 14:02:00 EDT,... Start Date: 06/20/19 Status: Ordered panty liners for incontinence panty liners for incontinence, See Instructions, # 150 each, Refills 11, Tot. Refills 11, Maintenance, dx: neurogenic bladder. N31.9, 06/01/19 9:42:00 EDT, Compound Start Date: 06/01/19 Status: Ordered sertraline 50 mg oral tablet 1 tablet = 50 mg, By Mouth, Daily, # 30 tablet, 6 Refills, Maintenance, 03/09/19 11:27:00 EST, [facility], 152.4, cm, 03/09/19 10:07:00 EST, Height [...] capsule, 6 Refills, Maintenance, 03/09/19 11:29:00 EST, [facility], 152.4, cm, 03/09/19 10:07:00 EST, Height [...] Active Left leg pain(Confirmed) 4, 5 Active *[id number]-[facility] Partn patrice Foster(Confirmed) Active Spina bifida(Confirmed) 01/21/07 [...]
--- OUTSIDE RECORDS SUMMARY | 2022-12-04 06:59 | XMS_ITS | Continuity of Care Document ---
Author Name Unknown Organization [facility] Address [address] [place] [address]- Care Team Providers Care Right Of Way Worker Name Role Phone Myra DURAN, Faiza Primary Care Physician [place] [facility] [place] - 06/19/[address] [address] Attending Physician: Trina Olsen CNM Admitting Physician: Trina Olsen CNM Referring Physician: Trina Olsen CNM Allergies, Adverse Reactions, Alerts Substance Reaction Severity Status ibuprofen HIVES Severe Active aspirin Active Tape 1 Active NSAIDs Active Advil Active Latex HIVES Moderate Active 1surgerical tape Immunizations Given and Recorded Vaccine Date Status Refusal Reason influenza virus vaccine, inactivated 02/22/18 Give n tetanus/diphtheria/pertussis, acel(Tdap) 02/22/18 Given Medications Catheter Supplies See Instructions, # 180 units, Refills 11, Tot. Refills 11, Maintenance, 10 Jamaican STraight Catheter. Dx: Neurogenic Bladder. 6 per [...] tablet, 3 Refills, Maintenance, 12/19/20 10:58:00 EDT, [facility]/pharmacy#1972, 152.4, cm, 12/19/20 9:56:00 EDT, Height Start Date: 12/19/20 Stop Date: 12/14/21 Status: Ordered traMADol 50 mg oral tablet 1 tablet = 50 mg, By Mouth, Every 8 hours, Dr. Hilton from [facility], # 90 tablet, 5 Refills, Maintenance, 01/24/21 [...] Active Left leg pain(Confirmed) 5, 6 Active *[id number] Care Partn patrice Murphy(Confirmed) Active Spina bifida(Confirmed) [...]
--- OUTSIDE RECORDS SUMMARY | 2022-12-04 06:59 | XMS_ITS | Continuity of Care Document ---
Author Name Unknown Organization [facility] Address Unknown Care Team Providers Care Messenger Floorperson Name Role Phone Myra DURAN, Faiza Primary Care Physician Encounter [facility] [place] Date(s): 03/19/21 - 04/18/21 [facility] Allergies, Adverse Reactions, Alerts Substance Reaction Severity Status ibuprofen HIVES Severe Active aspirin Active Advil Active Latex HIVES Moderate Active Tape 1 Active NSAIDs Active 1surgerical tape Immunizations Given and Recorded Vaccine Date Status Refusal Reason influenza virus vaccine, inactivated 02/22/18 Give n tetanus/diphtheria/pertussis, acel(Tdap) 02/22/18 Given Medications Catheter Supplies See Instructions, # 180 units, Refills 11, Tot. Refills 11, Maintenance, 10 Icelandic STraight Catheter. Dx: Neurogenic Bladder. 6 per [...] Soft Stop, 08/03/18 10:51:49 EDT, This is [facility] generic of Epipen Start Date: 08/03/18 [...] 12/19/20 10:58:00 EDT, Route to Pharmacy Electronically, [facility]/pharmacy #[id number], Partial fill upon patient requ... Start [...] Active Left leg pain(Confirmed) 5, 6 Active *[id number] Care Partn Ruthy Murphy(Confirmed) Active Spina bifida(Confirmed) 01/21/07 Active [...]
--- OUTSIDE RECORDS SUMMARY | 2022-12-04 06:59 | XMS_ITS | Continuity of Care Document ---
Author Name Unknown Organization [facility] Address [address] [place] [address]- Care Team Providers Care Manager Knowledge Name Role Phone Myra DURAN, Faiza Primary Care Physician ( [phone] Encounter [facility] [place] Date(s): 07/30/22 - 08/29/22 [facility] [address] [address]- Allergies, Adverse Reactions, Alerts Substance Reaction Severity [...] Maintenance, 10 Polish STraight Catheter. Dx: Neurogenic Bladder N31.9. 6 per day, 05/23/22 13:06:00 EST, Compound Start Date: 05/23/22 Status: Ordered cyclobenzaprine 10 mg oral tablet 10 mg, 1, tablet, By Mouth, Daily at bedtime, DO NOT TAKE TRAMADOL AT BEDTIME., # 90 tablet, Refills 0, Tot. Refills 0, Maintenance, 07/11/22 16:45:00 EDT, Route to Pharmacy Electronically, [facility] #[id number], Partial fill upon patient reques... Start Date: [...] Refills, Soft Stop, 10/25/21 11:46:00 EDT, [facility]/pharmacy #1972, Partial fill upon patient request if the prescription is for a schedule II opioi... Start Date: 10/25/21 Status: Ordered escitalopram 5 mg oral tablet 1 tablet = 5 mg, By Mouth, Daily, CORRECT DOSE. ONE TABLET DAILY, # 90 tablet, 0 Refills, Maintenance, 07/11/22 16:44:00 EDT, Tablet, [facility] #[id number], Partial fill upon patient request ifthe prescription [...] 07/24/22 12:08:00 EDT, Route to Pharmacy Electronically, [facility] #[id number], pt at increased risk for preg w/... Start Date: 07/24/22 Stop Date: 07/19/23 Status: Ordered Lotrimin AF 1% topical cream 1 application, Topically, 2 times a day, for 21 days, # 30 Gm, 2 Refills, Acute 09/22/22 17:07:00 EDT, 07/21/22 17:07:00 EDT, Cream, [facility] #[id number], Partial fill upon patient request if the [...] 3 Refills, Maintenance, 07/30/22 17:37:00 EDT, Tablet, [facility] #[id number], 1 tablet By Mouth Daily,x90 days,Instr:take in [...] capsule, 3 Refills, Maintenance, 04/22/22 11:15:00 EST, [facility] #[id number], 152.4, cm, 04/22/22 10:29:00 EST, Height, 71.8, [...] cervical cancer 1 Confirmed Active Depression Confirmed 7/7/08 Active Family history of breast cancer 2 Confirmed Active Immune to hepatitis B Confirmed Active Hidradenitis suppurativa Confirmed Active Hyperlipidemia Confirmed Active Marijuana smoker Confirmed Active Neurogenic bladder Confirmed Active Left leg pain 3, 4 Confirmed Active *[id number]-Adr ana laura Yuan Confirmed Active Spina bifida [...] Team Personnel Name: Faiza Renteria MD Position: [facility] Physician - Primary Care Member Role: PCP Address: Address: [address] [place] [address]- Care Team Related Persons Name: YANDY GORDON Name: LYDIA SANTIZO Address: home [address] [place] [address] Name: STATES, NO ONE Name: SAMEER INFANTE Address: [place] [address]
--- OUTSIDE RECORDS SUMMARY | 2022-12-04 06:59 | XMS_ITS | Continuity of Care Document ---
Author Name Unknown Organization [facility] Address [address] [place] [address]- Care Team Providers Care Elementary School Counselor Name Role Phone Myra DURAN, Faiza Primary Care Physician Encounter [facility] [place] Date(s): 03/09/19 - 03/19/19 [facility] [address] [place] [address]- [facility] Attending Physician: Admtr, Ar8 Allergies, Adverse Reactions, [...] Date: 02/02/19 Stop Date: 06/02/19 Status: Ordered Bactrim DS 800 mg-160 mg oral tablet 1 tablet, By Mouth, Every 12 hours, for 7 days, UTI resistant to nitrofurantoin drink plenty of fluids, # 14 tablet, 0 Refills, Acute 03/21/19 10:37:00 EST, 03/14/19 10:37:00 EST, [facility],1 tablet By Mouth Every 12 hours,x7 days,Instr:UTI... Start Date: 03/14/19 Stop Date: 03/21/19 Status: Ordered Catheter Supplies See Instructions, # 180 units, Refills 11, Tot. Refills 11, Maintenance, 10 Greek STraight Catheter. Dx: Neurogenic Bladder. 6 per day, 03/11/18 17:08:23 EST, Compound Start Date: 03/11/18 Status: Ordered cyclobenzaprine 5 mg oral tablet 1 tablet = 5 mg, By Mouth, Daily, PRN as needed for muscle spasm, # 30 tablet, 1 Refills, Maintenance, 03/01/19 11:06:33 EST, Tablet, 152.4, cm, 02/14/19 15:50:32 EST, Height Start Date: 03/01/19 Stop Date: 04/30/19 Status: Ordered Disposable underpads/Bed pads Disposable underpads/Bed [...] Soft Stop, 08/03/18 10:51:49 EDT, This is [facility] generic of Epipen Start Date: 08/03/18 [...] 13:24:57, Compound Start Date: 04/07/17 Status: Ordered Macrobid macrocrystals-monohydrate 100 mg oral capsule 1 capsule = 100 mg, By Mouth, 2 times a day, for 10 days, with food, # 20 capsule, 0 Refills, Acute03/21/19 12:00:00 EST, 03/11/19 12:00:00 EST, [facility]/pharmacy #1972, 152.4, cm, 03/09/19 10:07:00 EST,Height Start Date: 03/11/19 Stop Date: 03/21/19 Status: Ordered oxyCODONE 5 mg oral tablet 5 mg, 1, tablet, By Mouth, Every 8 hours, PRN, as needed for pain in wound of foot after debridement. appointment: 03-28-19, # 15 tablet, Refills 0, Tot. Refills 0, Maintenance, Pain , Moderate, 03/18/19 17:32:00 EST, Route to Pharmacy Electronically,... Start Date: 03/18/19 Status: Ordered panty liners for incontinence panty liners for incontinence, See Instructions, # 150 units, Refills 11, Tot. Refills 11, Maintenance, dx: neurogenic bladder. N31.9, 04/29/18 17:04:19 EST, Compound Start Date: 04/29/18 Status: Ordered sertraline 50 mg oral tablet [...] Active Left leg pain(Confirmed) 4, 5 Active *[id number]-[facility] Partn patrice Foster(Confirmed) Active Spina [...]
--- OUTSIDE RECORDS SUMMARY | 2022-12-04 06:59 | XMS_ITS | Continuity of Care Document ---
Author Name Unknown Organization [facility] Address [address] [place] [address]- Care Team Providers Care Wealth Management Consultant Name Role Phone Myra DURAN, Faiza Primary Care Physician En[place] [facility] [place] Date(s): 03/13/20 - 05/16/20 [facility] [address] [address]- Attending Physician: Faiza Renteria MD Admitting Physician: [...] Refills 11, Tot. Refills 11, Maintenance, 10 Irish STraight Catheter. Dx: Neurogenic Bladder. 6 per day, 03/11/18 17:08:23 EST, Compound Start Date: 03/11/18 Status: Ordered cyclobenzaprine 5 mg oral tablet 1 tablet, By Mouth, Daily, PRN NEEDED FOR MUSCLE SPASM, # 30 tablet, 3 Refills, Acute, 02/14/20 12:50:00 EST, [facility] [id number], 152.4, cm, 12/30/19 14:27:00 EDT, Height Start [...] Soft Stop, 08/03/18 10:51:49 EDT, This is [facility] generic of Epipen Start Date: 08/03/18 Status: [...] tablet, 6 Refills, Maintenance, 03/19/20 12:59:00 EST, [facility] 95752, 152.4, cm, 12/30/19 14:27:00 EDT, Height Start Date: 03/19/20 Status: Ordered Tape (1 -Paper) See Instructions, # 5 units, Maintenance, to use with gauze to cover chronic wound of left foot., 04/07/17 13:24:55, Compound Start Date: 04/07/17 Status: Ordered tolterodine 4 mg oral capsule, extended release 1 capsule, By Mouth, Daily, # 90 capsule, 2 Refills, Maintenance, 07/05/19 11:13:00 EDT, [facility] 69606, 152.4, cm, 06/23/19 13:01:00 EDT, Height Start [...] Active Left leg pain(Confirmed) 4, 5 Active *[id number] Care Partn patrice Murphy(Confirmed) Active Spina bifida(Confirmed) [...]
--- OUTSIDE RECORDS SUMMARY | 2022-12-04 06:59 | XMS_ITS | Continuity of Care Document ---
Author Name Unknown Organization [facility] Address Unknown Care Team Providers Care Roller Bearing Inspector Name Role Phone Myra DURAN, Faiza Primary Care Physician Encounter [facility] [place] Date(s): 03/19/21 - 04/18/21 [facility] Allergies, Adverse Reactions, Alerts Substance Reaction Severity Status ibuprofen HIVES Severe Active aspirin Active Advil Active Latex HIVES Moderate Active Tape 1 Active NSAIDs Active 1surgerical tape Immunizations Given and Recorded Vaccine Date Status Refusal Reason influenza virus vaccine, inactivated 02/22/18 Give n tetanus/diphtheria/pertussis, acel(Tdap) 02/22/18 Given Medications Catheter Supplies See Instructions, # 180 units, Refills 11, Tot. Refills 11, Maintenance, 10 Turkmen STraight Catheter. Dx: Neurogenic Bladder. 6 per day, 03/11/18 17:08:23 EST, Compound Start Date: 03/11/18 Status: Ordered cyclobenzaprine 5 mg oral tablet 1 tablet, By Mouth, Daily, PRN NEEDED FOR MUSCLE SPASM, do not take tramadol when taking this medication, # 30 tablet, 3 Refills, Maintenance, 12/27/20 18:06:00 EDT, [facility]pharmacy [facility][id number], 152.4, cm,12/19/20 9:56:00 EDT, Height Start [...] Soft Stop, 08/03/18 10:51:49 EDT, This is [facility] generic of Epipen Start Date: 08/03/18 [...] 12/19/20 10:58:00 EDT, Route to Pharmacy Electronically, [facility]/pharmacy #[id number], Partial fill upon patient requ... Start [...] Active Left leg pain(Confirmed) 5, 6 Active *[id number] Care Partn er Ruthy Murphy(Confirmed) Active Spina bifida(Confirmed) 01/21/07 Active [...]
--- OUTSIDE RECORDS SUMMARY | 2022-12-04 06:59 | XMS_ITS | Continuity of Care Document ---
Author Name Unknown Organization [facility] Address Unknown Care Team Providers Care Hat Blocker Name Role Phone Myra DURAN, Faiza Primary Care Physician [place] [facility] [place] 10[place]07[place]21 - 11/06/21 [facility] Allergies, Adverse Reactions, Alerts Substance Reaction Severity Status ibuprofen HIVES Severe Active aspirin Active Advil Active Latex HIVES Moderate Active Tape 1 Active NSAIDs Active 1surgerical tape Immunizations Given and Recorded Vaccine Date Status Refusal Reason influenza virus vaccine, inactivated 02/22/18 Give n tetanus/diphtheria/pertussis, acel(Tdap) 02/22/18 Given Medications Catheter Supplies See Instructions, # 180 each, Refills 11, Tot. Refills 11, Maintenance, 10 Vietnamese STraight Catheter. Dx: Neurogenic Bladder N31.9. 6 [...] Active Left leg pain(Confirmed) 5, 6 Active *[id number] Care Partn patrice Ruthy Murphy(Confirmed) Active Spina [...] History Type Response Smoking Status 5-9 cigarettes (reaganw een 1/4 to 1/2 pack)/day in last 30 days; Type: Cigarettes; Tobacco use times per day: 4 cigs in a good day more than 5 on bad days; Started at age: 25; entered on: 08/03/18 Sex
--- OUTSIDE RECORDS SUMMARY | 2022-12-04 07:00 | XMS_ITS | Continuity of Care Document ---
Author Name Unknown Organization [facility] Address [address] [place] [address]- Care Team Providers Care Sales Systems Engineer Name Role Phone Myra DURAN, Faiza Primary Care Physician [place] [facility] [place] - 05/22/22 [facility]/[address] [address]- Attending Physician: Admtr, Ar8 Allergies, Adverse Reactions, [...] Refills 11, Tot. Refills 11, Maintenance, 10 Libyan STraight Catheter. Dx: Neurogenic Bladder N31.9. 6 per day, 09/10/21 14:54:00 EDT, Compound Start Date: 09/10/21 Status: Ordered cyclobenzaprine 5 mg oral tablet 1 tablet, By Mouth, Daily, PRN NEEDED FOR MUSCLE SPASM, DO NOT TAKE TRAMADOL WHEN TAKING THIS MED, # 30 tablet, 1 Refills, Maintenance, 04/22/22 11:15:00 EST, [facility] #[id number], 152.4, cm, 04/22/22 10:29:00 EST, Height, 71.8, kg, 05/14/21... Start Date: 04/22/22 Status: Ordered Disposable underpads/Bed pads Disposable underpads/Bed [...] 0 Refills, Soft Stop, 10/25/21 11:46:00 EDT, [facility]/pharmacy #1972, Partial fill upon patient [...] capsule, Refills 3, Tot. Refills 3, Maintenance, 04/22/22 11:15:00 EST, Route to Pharmacy Electronically, [facility] #[id number], Partial fill upon pat... Start Date: 04/22/22 Stop Date: 04/17/23 Status: Ordered naloxone 4 mg/0.1 mL nasal spray See Instructions, 4 mg(contents of 1 nasal spray) as a single dose in one nostril; may repeat every2 to 3 minutes in alternating nostrils until medical assistance becomes available., # 4 each, 0 Refills, Soft Stop, 12/27/20 18:08:00 EDT, [facility]/pharmacy... Start Date: 12/27/20 Status: Ordered [...] Daily, # 90 tablet, 3 Refills, Maintenance, 04/22/22 11:15:00 EST, [facility] #[id number], 152.4, cm, 04/22/22 10:29:00 EST, Height, 71.8, kg, 05/14/21 12:20:00 EST, Dry Weight Start Date: 04/22/22 Stop Date: 04/17/23 Status: Ordered tolterodine 4 mg oral capsule, extended release 1 capsule, By Mouth, Daily, # 90 capsule, 3 Refills, Maintenance, 04/22/22 11:15:00 EST, [facility] #[id number], 152.4, cm, 04/22/22 10:29:00 EST, Height, 71.8, [...] smoker Confirmed Active Neurogenic bladder Confirmed Active Obese class I Confirmed Active Left leg pain 3, 4 Confirmed Active *[id number] Weigh And Charge Worker Ruthy Murphy Confirmed Active Spina bifida Confirmed [...] at age: 25; entered on: 04/22/22 Sex Note * Event Display: MRI Ankle/Foot, Non- Authored Date: Patient Care team information Care Team Personnel Name: Faiza Renteria MD Position: [facility] Primary Care Physician Member Role: PCP Address: Address: [address] [place] [address]- Care Team Related Persons Name: YANDY GORDON Name: LYDIA SANTIZO Address: [place] [address] Name: STATES, NO ONE Name: SAMEER INFANTE Address: [place] [address]
--- OUTSIDE RECORDS SUMMARY | 2022-12-04 07:00 | XMS_ITS | Continuity of Care Document ---
Author Name Unknown Organization [facility] Address [address] [place] [address]- Care Team Providers Care Master Barber Name Role Phone Myra DURAN, Faiza Primary Care Physician Encounter [facility] [place] Date(s): 06/01/20 - 07/01/20 [facility] [address] [place] [address]- Allergies, Adverse Reactions, Alerts Substance Reaction Severity [...] Refills 11, Tot. Refills 11, Maintenance, 10 Slovenian STraight Catheter. Dx: Neurogenic Bladder. 6 per day, 03/11/18 17:08:23 EST, Compound Start Date: 03/11/18 Status: Ordered cyclobenzaprine 5 mg oral tablet 1 tablet, By Mouth, Daily, PRN NEEDED FOR MUSCLE SPASM, # 30 tablet, 3 Refills, Acute, 06/27/20 13:13:00 EDT, [id number], 152.4, cm, 05/17/20 11:30:00 EST, Height Start Date: 06/27/20 Status: Ordered Disposable underpads/Bed pads Disposable underpads/Bed [...] Soft Stop, 08/03/18 10:51:49 EDT, This is [facility] generic of Epipen Start Date: 08/03/18 [...] tablet, 6 Refills, Maintenance, 03/19/20 12:59:00 EST, [id number], 152.4, cm, 12/30/19 14:27:00 EDT, Height Start Date: 03/19/20 Status: Ordered Tape (1 -Paper) See Instructions, # 5 units, Maintenance, to use with gauze to cover chronic wound of left foot., 04/07/17 13:24:55, Compound Start Date: 04/07/17 Status: Ordered tolterodine 4 mg oral capsule, extended release 1 capsule, By Mouth, Daily, # 90 capsule, 2 Refills, Maintenance, 07/05/19 11:13:00 EDT, [facility], 152.4, cm, 06/23/19 13:01:00 EDT, Height Start [...] Active Left leg pain(Confirmed) 4, 5 Active *[id number] Care Partn patrice Murphy(Confirmed) Active Spina bifida(Confirmed) [...]
--- OUTSIDE RECORDS SUMMARY | 2022-12-04 07:00 | XMS_ITS | Continuity of Care Document ---
Author Name Unknown Organization [facility] Address Unknown Care Team Providers Care Clinical Project Manager Name Role Phone Myra DURAN, Faiza Primary Care Physician Encounter [facility] Date(s): 03/06/21 - 04/05/21 [facility] Allergies, Adverse Reactions, Alerts Substance [...] Refills 11, Tot. Refills 11, Maintenance, 10 Yi STraight Catheter. Dx: Neurogenic Bladder. 6 per day, 03/11/18 17:08:23 EST, Compound Start Date: 03/11/18 Status: Ordered cyclobenzaprine 5 mg oral tablet 1 tablet, By Mouth, Daily, PRN NEEDED FOR MUSCLE SPASM, do not take tramadol when taking this medication, # 30 tablet, 3 Refills, Maintenance, 12/27/20 18:06:00 EDT, [facility]/pharmacy #1972, 152.4, cm,12/19/20 9:56:00 EDT, Height Start [...] Soft Stop, 08/03/18 10:51:49 EDT, This is [facility] generic of Epipen Start Date: [...] 12/19/20 10:58:00 EDT, Route to Pharmacy Electronically, [facility]/pharmacy #1972, Partial fill upon patient [...] Refills, Maintenance, 09/26/20 13:11:00 EDT, [facility], 152.4, cm, 05/17/20 11:30:00 EST, Height Start Date: 09/26/20 Status: Ordered traMADol 50 mg oral tablet 1 tablet = 50 mg, By Mouth, Every 8 hours, Dr. Hilton from [facility], # 90 tablet, 5 Refills, Maintenance, [...] Active Left leg pain(Confirmed) 5, 6 Active *[id number] Care Partn patrice Ruthy Murphy(Confirmed) Active Spina [...]
--- OUTSIDE RECORDS SUMMARY | 2022-12-04 07:00 | XMS_ITS | Continuity of Care Document ---
Author Name Unknown Organization [facility] Address [address] [place] [address]- Care Team Providers Care Agency Sales Development Associate Name Role Phone Myra DURAN, Faiza Primary Care Physician Encounter [facility] [place] Date(s): 07/30/22 - 08/29/22 [facility]/[address] [address]- [place] Allergies, Adverse Reactions, Alerts Substance Reaction [...] 07/11/22 16:45:00 EDT, Route to Pharmacy Electronically, [facility] #[id number], Partial fill upon patient reques... Start Date: [...] 0 Refills, Soft Stop, 10/25/21 11:46:00 EDT, [facility]/pharmacy #1972, Partial fill upon patient request if the prescription is for a schedule II opioi... Start Date: 10/25/21 Status: Ordered escitalopram 5 mg oral tablet 1 tablet = 5 mg, By Mouth, Daily, CORRECT DOSE. ONE TABLET DAILY, # 90 tablet, 0 Refills, Maintenance, 07/11/22 16:44:00 EDT, Tablet, [facility] #[id number], Partial fill upon patient request ifthe prescription [...] 07/24/22 12:08:00 EDT, Route to Pharmacy Electronically, [facility] #[id number], pt at increased risk for preg w/... Start Date: 07/24/22 Stop Date: 07/19/23 Status: Ordered Lotrimin AF 1% topical cream 1 application, Topically, 2 times a day, for 21 days, # 30 Gm, 2 Refills, Acute 09/22/22 17:07:00 EDT, 07/21/22 17:07:00 EDT, Cream, [facility] #[id number], Partial fill upon patient request if the [...] 0 Refills, Soft Stop, 12/27/20 18:08:00 EDT, [facility]/pharmacy... Start Date: 12/27/20 Status: Ordered Poise 12 [...] 3 Refills, Maintenance, 07/30/22 17:37:00 EDT, Tablet, [facility] #[id number], 1 tablet By Mouth Daily,x90 days,Instr:take in [...] capsule, 3 Refills, Maintenance, 04/22/22 11:15:00 EST, [facility] #[id number], 152.4, cm, 04/22/22 10:29:00 EST, Height, 71.8, [...] Left leg pain 3, 4 Confirmed Active *[id number]-Adr ana laura Yuan Confirmed Active Spina bifida [...] Team Personnel Name: Faiza Renteria MD Position: [facility] Physician - Primary Care Member Role: PCP Address: Address: [address] [place] [address]- Care Team Related Persons Name: YANDY GORDON Name: LYDIA SANTIZO Address: home [address] [place] [address] Name: STATES, NO ONE Name: SAMEER INFANTE Address: [place] [address]
--- OUTSIDE RECORDS SUMMARY | 2022-12-04 07:00 | XMS_ITS | Continuity of Care Document ---
Author Name Unknown Organization [facility] Address Unknown Care Team Providers Care Lieutenant General Name Role Phone Myra DURAN, Faiza Primary Care Physician [place] [facility] [place] 09/10[place]21 - 10/10/21 [facility] Allergies, Adverse Reactions, Alerts Substance Reaction Severity Status ibuprofen HIVES Severe Active aspirin Active Advil Active Latex HIVES Moderate Active Tape 1 Active NSAIDs Active 1surgerical tape Immunizations Given and Recorded Vaccine Date Status Refusal Reason influenza virus vaccine, inactivated 02/22/18 Give n tetanus/diphtheria/pertussis, acel(Tdap) 02/22/18 Given Medications Catheter Supplies See Instructions, # 180 each, Refills 11, Tot. Refills 11, Maintenance, 10 Djiboutian STraight Catheter. Dx: Neurogenic Bladder N31.9. 6 [...] 12/19/20 10:58:00 EDT, Route to Pharmacy Electronically, [facility]/pharmacy #[id number], Partial fill upon patient requ... Start [...] Mouth, Every 8 hours, [facility]. Hilton from [facility], # 90 tablet, 5 Refills, Maintenance, [...] Active Left leg pain(Confirmed) 5, 6 Active *[id number] Care Partn patrice Ruthy Murphy(Confirmed) Active Spina [...]
--- OUTSIDE RECORDS SUMMARY | 2022-12-04 07:00 | XMS_ITS | Continuity of Care Document ---
Author Name Unknown Organization [facility] Address [address] [place] [address]- Care Team Providers Care Aligning Checker Name Role Phone Faiza Renteria MD Primary Care Physician Encounter [facility] Date(s): 03/12/19 - 04/17/19 [facility] [address] [place] [address]- [facility] Attending Physician: Arnaldo Crowley [...] Refills 11, Tot. Refills 11, Maintenance, 10 Guyanese STraight Catheter. Dx: Neurogenic Bladder. 6 per [...] Soft Stop, 08/03/18 10:51:49 EDT, This is [facility] generic of Epipen Start Date: 08/03/18 [...] in wound of foot after debridement. appointment: 04-21-19. Can refill before appointment, # 15 tablet, Refills 0, Tot. Refills 0, Maintenance, Pain , Moderate, 04/14/19 13:14:00 EST, Rou... Start Date: 04/14/19 Status: Ordered panty liners for incontinence panty liners for incontinence, See Instructions, # 150 units, Refills 11, Tot. Refills 11, Maintenance, dx: neurogenic bladder. N31.9, 04/29/18 17:04:19 EST, Compound Start Date: 04/29/18 Status: Ordered sertraline 50 mg oral tablet 1 tablet = 50 mg, By Mouth, Daily, # 30 tablet, 6 Refills, Maintenance, 03/09/19 11:27:00 EST, [facility]/pharmacy #1972, 152.4, cm, 03/09/19 10:07:00 EST, Height [...] capsule, 6 Refills, Maintenance, 03/09/19 11:29:00 EST, [facility]/pharmacy #1972, 152.4, cm, 03/09/19 10:07:00 EST, Height [...] Active Left leg pain(Confirmed) 4, 5 Active *[id number]-[facility] Partn patrice Foster(Confirmed) Active Spina bifida(Confirmed) 01/21/07 [...]
--- OUTSIDE RECORDS SUMMARY | 2022-12-04 07:00 | XMS_ITS | Continuity of Care Document ---
Author Name Unknown Organization [facility] Address [address] [place] [address]- Care Team Providers Care Broker Assistant Name Role Phone Myra DURAN, Faiza Primary Care Physician [place] [facility] [place] - 08/03/22 [facility]/[address] [address]- [place] Allergies, Adverse Reactions, Alerts Substance Reaction Severity Status ibuprofen HIVES Severe Active aspirin Active Advil Active Latex HIVES Moderate Active Tape 1 Active NSAIDs Active 1surgerical tape Immunizations Given and Recorded Vaccine Date Status Refusal Reason influenza virus vaccine, inactivated 02/22/18 Give n tetanus/diphtheria/pertussis, acel(Tdap) 02/22/18 Given Medications Catheter Supplies See Instructions, # 180 each, Refills 11, Tot. Refills 11, Maintenance, 10 Wolof STraight Catheter. Dx: Neurogenic Bladder N31.9. 6 per day, 05/23/22 13:06:00 EST, Compound Start Date: 05/23/22 Status: Ordered cyclobenzaprine 10 mg oral tablet 10 mg, 1, tablet, By Mouth, Daily at bedtime, DO NOT TAKE TRAMADOL AT BEDTIME., # 90 tablet, Refills 0, Tot. Refills 0, Maintenance, 07/11/22 16:45:00 EDT, Route to Pharmacy Electronically, [facility] #[id number], Partial fill upon patient reques... Start Date: [...] 0 Refills, Soft Stop, 10/25/21 11:46:00 EDT, [facility]/pharmacy #1972, Partial fill upon patient request if the prescription is for a schedule II opioi... Start Date: 10/25/21 Status: Ordered escitalopram 5 mg oral tablet 1 tablet = 5 mg, By Mouth, Daily, CORRECT DOSE. ONE TABLET DAILY, # 90 tablet, 0 Refills, Maintenance, 07/11/22 16:44:00 EDT, Tablet, [facility] #[id number], Partial fill upon patient request ifthe prescription [...] 07/24/22 12:08:00 EDT, Route to Pharmacy Electronically, [facility] #[id number], pt at increased risk for preg w/... Start Date: 07/24/22 Stop Date: 07/19/23 Status: Ordered Lotrimin AF 1% topical cream 1 application, Topically, 2 times a day, for 21 days, # 30 Gm, 2 Refills, Acute 09/22/22 17:07:00 EDT, 07/21/22 17:07:00 EDT, Cream, [facility] #[id number], Partial fill upon patient request if the [...] 0 Refills, Soft Stop, 12/27/20 18:08:00 EDT, [facility]/pharmacy... Start Date: 12/27/20 Status: Ordered Poise 12 [...] 3 Refills, Maintenance, 07/30/22 17:37:00 EDT, Tablet, [facility] #[id number], 1 tablet By Mouth Daily,x90 days,Instr:take in [...] capsule, 3 Refills, Maintenance, 04/22/22 11:15:00 EST, [facility] #[id number], 152.4, cm, 04/22/22 10:29:00 EST, Height, 71.8, kg, 05/14/21 12:20:00 EST, Dry Weight Start Date: 04/22/22 Status: Ordered traMADol 50 mg oral tablet TAKE 1 TABLET BY MOUTH THREE TIMES A DAY NEEDED FOR PAIN. By Yobani Elena (the [facility]) Start Date: 04/22/22 Status: Ordered Problem List [...] Left leg pain 3, 4 Confirmed Active *[id number]-Adr ana laura Yuan Confirmed Active Spina bifida [...] Care Physician Member Role: PCP Address: Address: [address] [place] [address]- Care Team Related Persons Name: YANDY GORDON Name: LYDIA SANTIZO Address: home [address] [place] [address] Name: STATES, NO ONE Name: SAMEER INFANTE Address: [place] [address]
--- OUTSIDE RECORDS SUMMARY | 2022-12-04 07:00 | XMS_ITS | Continuity of Care Document ---
Author Name Unknown Organization [facility] Address [address] [place] [address]- Care Team Providers Care Lunch Wagon Operator Name Role Phone Myra DURAN, Faiza Primary Care Physician [place] [facility] [place] - 10/02/[address] [facility] [address] [place] [address] [facility] Attending Physician: Admtr, Ar8 Allergies, [...] Refills 11, Tot. Refills 11, Maintenance, 10 Algerian STraight Catheter. Dx: Neurogenic Bladder. 6 per day, 03/11/18 17:08:23 EST, Compound Start Date: 03/11/18 Status: Ordered cyclobenzaprine 5 mg oral tablet 1 tablet, By Mouth, Daily, PRN NEEDED FOR MUSCLE SPASM, # 30 tablet, 1 Refills, Acute, 08/17/19 14:17:00 EDT, [facility], 152.4, cm, 08/02/19 14:54:00 EDT, Height Start Date: 08/17/19 Status: Ordered Disposable underpads/Bed pads Disposable underpads/Bed [...] [facility]... Start Date: 09/01/19 Status: Ordered panty liners for incontinence panty [...] Refills, Maintenance, 07/05/19 11:13:00 EDT, [facility], 152.4, cm, 06/23/19 13:01:00 EDT, Height Start [...] Active Left leg pain(Confirmed) 4, 5 Active *[id number]-[facility] Partn patrice Foster(Confirmed) Active Spina bifida(Confirmed) 01/21/07 [...] degenerative changes of left knee (07-04-2013) 6-overflow Vital Signs Most recent to oldest [Reference Range]: 1 Height 152.40 cm (11/03/18 1:41 PM) Oxygen Saturation [94-100 %] 95 % (11/03/18 1:41 PM) Pulse Rate [55-90 bpm] 76 bpm (11/03/18 1:41 PM) Blood Pressure [90-138/55-84 mm Hg] 104/ 64mm Hg (11/03/18 1:41 PM) Respiratory Rate [16-30 br/min] 18 br/mi n (11/03/18 1:41 PM) Temperature [96.8-100.4 DegF] 98.6 DegF (11/03/18 1:41 PM) Mode of Delivery (Oxygen) Room air (11/03/18 1:41 PM) Blood pressure sites Arm, left (11/03/18 1:41 PM) Temperature Route Oral (11/03/18 1:41 PM) Social History Social History Type Response Smoking Status 5-9 cigarettes (betw een 1/4 to 1/2 pack)/day in last 30 days; Type: Cigarettes; Tobacco use times per day: 4 cigs in a good day more than 5 on bad days; Started at age: 25; entered on: 08/03/18 Sex
--- OUTSIDE RECORDS SUMMARY | 2022-12-04 07:00 | XMS_ITS | Continuity of Care Document ---
Author Name Unknown Organization [facility] Address [address] [place] [address]- Care Team Providers Care Manager Lab Name Role Phone Faiza Renteria MD Primary Care Physician [place] [facility] [place] - 06/26/[address] [facility] [address] [place] [address] [facility] Attending Physician: Arnaldo Crowley MD Admitting [...] Refills 11, Tot. Refills 11, Maintenance, 10 Kazakh STraight Catheter. Dx: Neurogenic Bladder. 6 per [...] tablet, 6 Refills, Maintenance, 03/09/19 11:27:00 EST, [facility]/pharmacy #1972, 152.4, cm, 03/09/19 10:07:00 EST, Height [...] capsule, 6 Refills, Maintenance, 03/09/19 11:29:00 EST, [facility]/pharmacy #1972, 152.4, cm, 03/09/19 10:07:00 EST, Height [...] Active Left leg pain(Confirmed) 4, 5 Active *[id number][facility] Johnna Foster(Confirmed) Active Spina bifida(Confirmed) 01/21/07 Active Urinary [...]
--- OUTSIDE RECORDS SUMMARY | 2022-12-04 07:00 | XMS_ITS | Continuity of Care Document ---
Author Name Unknown Organization [facility] Address [address] [place] [address]- Care Team Providers Care Marquetry Worker Name Role Phone Faiza Renteria MD Primary Care Physician [place] [facility] [place]s): 02/04/19 - 03/12/19 [facility] [address] [place] [address] [facility] Attending Physician: Arnaldo Crowley MD Admitting [...] Refills 11, Tot. Refills 11, Maintenance, 10 Hungarian STraight Catheter. Dx: Neurogenic Bladder. 6 per [...] Refills, Acute03/21/19 12:00:00 EST, 03/11/19 12:00:00 EST, [facility]/pharmacy #1972, 152.4, cm, 03/09/19 10:07:00 EST,Height Start Date: 03/11/19 Stop Date: 03/21/19 Status: Ordered oxyCODONE 5 mg oral tablet 5 mg, 1, tablet, By Mouth, Every 8 hours, PRN, as needed for pain in wound of foot after debridement. appointment: 03-18-19, # 15 tablet, Refills 0, Tot. Refills 0, Maintenance, Pain , Moderate, 03/18/19 14:49:00 EST, Route to Pharmacy Electronically,... Start Date: [...] tablet, 6 Refills, Maintenance, 03/09/19 11:27:00 EST, [facility]/pharmacy #1972, 152.4, cm, 03/09/19 10:07:00 EST, Height [...] Active Left leg pain(Confirmed) 4, 5 Active *[id number]-[facility] Partn patrice Foster(Confirmed) Active Spina bifida(Confirmed) 01/21/07 [...]
--- OUTSIDE RECORDS SUMMARY | 2022-12-04 07:00 | XMS_ITS | Continuity of Care Document ---
Author Name Unknown Organization [facility] Address [address] [place] [address]- Care Team Providers Care Milling Machine Operator Name Role Phone Faiza Renteria MD Primary Care Physician Encounter [facility] [place] Date(s): 03/28/19 - 04/29/19 W[facility] Care [address] [place] [address]- [facility] Attending Physician: Arnaldo Crowley MD Admitting Physician: [...] Refills 11, Tot. Refills 11, Maintenance, 10 Singaporean STraight Catheter. Dx: Neurogenic Bladder. 6 per [...] Soft Stop, 08/03/18 10:51:49 EDT, This is [facility] generic of Epipen Start Date: [...] in wound of foot after debridement. appointment: 04-29-19. Can refill before appointment, # 15 tablet, Refills 0, Tot. Refills 0, Maintenance, Pain , Moderate, 04/25/19 12:57:00 EST, Rou... Start Date: 04/25/19 Status: Ordered panty liners for incontinence panty liners for incontinence, See Instructions, # 150 units, Refills 11, Tot. Refills 11, Maintenance, dx: neurogenic bladder. N31.9, 04/29/18 17:04:19 EST, Compound Start Date: 04/29/18 Status: Ordered sertraline 50 mg oral tablet 1 tablet = 50 mg, By Mouth, Daily, # 30 tablet, 6 Refills, Maintenance, 03/09/19 11:27:00 EST, [facility]/pharmacy #1972, 152.4, cm, 03/09/19 10:07:00 EST, Height [...] capsule, 6 Refills, Maintenance, 03/09/19 11:29:00 EST, [facility]/pharmacy #1972, 152.4, cm, 03/09/19 10:07:00 EST, Height [...] Active Left leg pain(Confirmed) 4, 5 Active *[id number]-[facility] Partn patrice Johnna Foster(Confirmed) Active Spina bifida(Confirmed) 01/21/07 [...]
--- OUTSIDE RECORDS SUMMARY | 2022-12-04 07:00 | XMS_ITS | Continuity of Care Document ---
Author Name Unknown Organization [facility] Address [address] [place] [address]- Care Team Providers Care Service Tech Name Role Phone Myra DURAN, Faiza Primary Care Physician ( [phone] [place] [facility] [place]22[place]21 - 12/22/21 [facility]/[address] [address]- [place] Allergies, Adverse Reactions, Alerts Substance Reaction Severity Status ibuprofen HIVES Severe Active aspirin Active Advil Active Latex HIVES Moderate Active Tape 1 Active NSAIDs Active 1surgerical tape Immunizations Given and Recorded Vaccine Date Status Refusal Reason influenza virus vaccine, inactivated 02/22/18 Give n tetanus/diphtheria/pertussis, acel(Tdap) 02/22/18 Given Medications Catheter Supplies See Instructions, # 180 each, Refills 11, Tot. Refills 11, Maintenance, 10 Maori STraight Catheter. Dx: Neurogenic Bladder N31.9. 6 per day, 09/10/21 14:54:00 EDT, Compound Start Date: 09/10/21 Status: Ordered cyclobenzaprine 5 mg oral tablet 1 tablet, By Mouth, Daily, PRN NEEDED FOR MUSCLE SPASM, DO NOT TAKE TRAMADOL WHEN TAKING THIS MED, # 30 tablet, 1 Refills, [facility], 152.4, cm, 05/14/21 12:20:00 EST, Height, 71.8, kg, 05/14/21 12:20:00 EST, Dry Weight Start Date: 11/11/21 Status: Ordered DHEA 25 mg oral tablet 1 tablet = 25 mg, By Mouth, Daily, # 30 tablet, 3 Refills, Maintenance, 05/14/21 12:17:00 EST, Tablet, [facility]/pharmacy #1972, Partial fill upon patient request [...] tablet, 3 Refills, Maintenance, 12/19/20 10:58:00 EDT, [facility]/pharmacy#1972, 152.4, cm, 12/19/20 9:56:00 EDT, Height Start Date: 12/19/20 Stop Date: 12/14/21 Status: Ordered tolterodine 4 mg oral capsule, extended release 1 capsule, By Mouth, Daily, # 90 capsule, 3 Refills, Maintenance, 04/18/21 10:00:00 EST, [facility]/pharmacy #1972, 152.4, cm, 04/17/21 16:41:00 EST, Height Start Date: 04/18/21 Status: Ordered traMADol 50 mg oral tablet 1 tablet = 50 mg, By Mouth, Every 8 hours, Dr. Hilton from [facility], # 90 tablet, 5 Refills, [...] Left leg pain 5, 6 Confirmed Active *[phone] Cabinetmaker Apprentice Ruthy Murphy Confirmed Active Spina bifida Confirmed [...] on: 08/03/18 Sex Patient Care team information Personnel Name: Faiza Renteria MD Address: Address: [address] [place] [id number]
--- OUTSIDE RECORDS SUMMARY | 2022-12-04 07:00 | XMS_ITS | Continuity of Care Document ---
Author Name Unknown Organization [facility] Address [address] [place] [address]- Care Team Providers Care Television Cameraman Name Role Phone Myra DURAN, Faiza Primary Care Physician Encounter [facility] [place] Date(s): 05/17/20 - 06/16/20 [facility]/[address] [address]- Attending Physician: Admtr, Ar8 Allergies, Adverse Reactions, Alerts Substance Reaction Severity Status ibuprofen HIVES Severe Active aspirin Active NSAIDs Active Advil Active Latex HIVES [...] Refills 11, Tot. Refills 11, Maintenance, 10 Ukrainian STraight Catheter. Dx: Neurogenic Bladder. 6 per day, 03/11/18 17:08:23 EST, Compound Start Date: 03/11/18 Status: Ordered cyclobenzaprine 5 mg oral tablet 1 tablet, By Mouth, Daily, PRN NEEDED FOR MUSCLE SPASM, # 30 tablet, 3 Refills, Acute, 02/14/20 12:50:00 EST, [facility], 152.4, cm, 12/30/19 14:27:00 EDT, Height Start [...] Soft Stop, 08/03/18 10:51:49 EDT, [facility] is [facility] generic of Epipen Start Date: [...] 0 Refills, Maintenance, 06/05/20 15:02:00 EDT, Gel, [facility]/pharmacy #1972, Partial fill upon [...] 09/01/19 18:43:00 EDT, Route to Pharmacy Electronically, [facility]/pharm... Start Date: 09/01/19 Status: Ordered Poise 12 hour Heavy Duty Poise 12 hour Heavy Duty, See Instructions, # 150 each, Refills 11, Tot. Refills 11, Maintenance, dx: neurogenic bladder. N31.9, 04/16/20 12:02:00 EST, Compound Start Date: 1/25/21 Status: Ordered Pull Ups- size medium Pull Ups- size medium, See Instructions, # 60 each, Refills 11, Tot. Refills 11, Maintenance, to use at bedtime. Dx: neurogenic bladder, 04/16/20 12:03:00 EST, Supply Start Date: 04/16/20 Status: Ordered sertraline 50 mg oral tablet 1 tablet, By Mouth, Daily, # 30 tablet, 6 Refills, Maintenance, 03/19/20 12:59:00 EST, [facility], 152.4, cm, 12/30/19 14:27:00 EDT, Height Start Date: 03/19/20 Status: Ordered Tape (1 -Paper) See Instructions, # 5 units, Maintenance, to use with gauze to cover chronic wound of left foot., 04/07/17 13:24:55, Compound Start Date: 04/07/17 Status: Ordered tolterodine 4 mg oral capsule, extended release 1 capsule, By Mouth, Daily, # 90 capsule, 2 Refills, Maintenance, 07/05/19 11:13:00 EDT, [facility] 465[facility], 152.4, cm, 06/23/19 13:01:00 EDT, Height Start [...] Active Left leg pain(Confirmed) 4, 5 Active *[id number] Care Partn patrice Murphy(Confirmed) Active Spina bifida(Confirmed) [...]
--- OUTSIDE RECORDS SUMMARY | 2022-12-04 07:00 | XMS_ITS | Continuity of Care Document ---
Author Name Unknown Organization [facility] Address [address] [place] [address]- Care Team Providers Care Tattoo Technician Name Role Phone Faiza Renteria MD Primary Care Physician ( [phone] En[place] [facility] [place] Date(s): 03/22/19 - 04/27/19 W[facility] Care [address] [place] [address] [facility] Attending Physician: Arnaldo Crowley MD Admitting Physician: [...] Refills 11, Tot. Refills 11, Maintenance, 10 Costa Rican STraight Catheter. Dx: Neurogenic Bladder. 6 per [...] 08/03/18 10:51:49 EDT, This is [facility] generic of Epipen Start Date: 08/03/18 [...] tablet, 6 Refills, Maintenance, 03/09/19 11:27:00 EST, [facility]/pharmacy #1972, 152.4, cm, 03/09/19 10:07:00 EST, [...] capsule, 6 Refills, Maintenance, 03/09/19 11:29:00 EST, [facility]/pharmacy #1972, 152.4, cm, 03/09/19 10:07:00 EST, [...] Active Left leg pain(Confirmed) 4, 5 Active *[id number]-[facility] Partn patrice Johnna Foster(Confirmed) Active Spina bifida(Confirmed) [...]
--- OUTSIDE RECORDS SUMMARY | 2022-12-04 07:00 | XMS_ITS | Continuity of Care Document ---
Author Name Unknown Organization [facility] Address Unknown Care Team Providers Care Chute Worker Name Role Phone Myra DURAN, Faiza Primary Care Physician En[place] [facility] [place] Date(s): 08/27/21 - 09/26/21 [facility] Allergies, Adverse Reactions, Alerts Substance Reaction [...] Maintenance, 10 Icelandic STraight Catheter. Dx: Neurogenic Bladder N31.9. 6 [...] Soft Stop, 08/03/18 10:51:49 EDT, This is [facility] generic of Epipen Start Date: [...] 12/19/20 10:58:00 EDT, Route to Pharmacy Electronically, [facility]/pharmacy #1972, Partial fill upon patient requ... Start Date: 12/19/20 Stop Date: 12/14/21 Status: Ordered naloxone 4 mg/0.1 mL nasal spray See Instructions, 4 mg(contents of 1 nasal spray) as a single dose in one nostril; may repeat every2 to 3 minutes in alternating nostrils until medical assistance becomes available., # 4 each, 0 Refills, Soft Stop, 12/27/20 18:08:00 EDT, [facility]/pharmacy... Start Date: 12/27/20 Status: Ordered Poise 12 [...] Mouth, Every 8 hours, Dr. Hilton from [facility], # 90 tablet, 5 Refills, Maintenance, [...] Active Left leg pain(Confirmed) 5, 6 Active *[phone] Care Partn patrice Ruthy Murphy(Confirmed) Active Spina [...]
--- OUTSIDE RECORDS SUMMARY | 2022-12-04 07:00 | XMS_ITS | Continuity of Care Document ---
Author Name Unknown Organization [facility] Address Unknown Care Team Providers Care Director Media Name Role Phone Myra DURAN, Faiza Primary Care Physician Encounter [facility] [place] Date(s): 05/20/21 - 06/19/21 [facility] Attending Physician: AdmtrAdrienne Allergies, Adverse Reactions, Alerts Substance Reaction Severity Status ibuprofen HIVES Severe Active aspirin Active Latex HIVES Moderate Active Tape 1 Active NSAIDs Active Advil Active 1surgerical tape Immunizations Given and Recorded Vaccine Date Status Refusal Reason influenza virus vaccine, inactivated 02/22/18 Give n tetanus/diphtheria/pertussis, acel(Tdap) 02/22/18 Given Medications Catheter Supplies See Instructions, # 180 units, Refills 11, Tot. Refills 11, Maintenance, 10 Sami STraight Catheter. Dx: Neurogenic Bladder. 6 per [...] Soft Stop, 08/03/18 10:51:49 EDT, This is [facility] generic of Epipen Start Date: [...] 12/19/20 10:58:00 EDT, Route to Pharmacy Electronically, [facility]/pharmacy #1972, Partial fill upon patient requ... Start Date: 12/19/20 Stop Date: 12/14/21 Status: Ordered naloxone 4 mg/0.1 mL nasal spray See Instructions, 4 mg(contents of 1 nasal spray) as a single dose in one nostril; may repeat every2 to 3 minutes in alternating nostrils until medical assistance becomes available., # 4 each, 0 Refills, Soft Stop, 12/27/20 18:08:00 EDT, [facility]/pharmacy... Start Date: 12/27/20 Status: Ordered Poise [...] Mouth, Every 8 hours, Dr. Hilton from [facility], # 90 tablet, 5 Refills, [...] Active Left leg pain(Confirmed) 5, 6 Active *[phone] Care Partn patrice Murphy(Confirmed) Active Spina bifida(Confirmed) [...]
--- OUTSIDE RECORDS SUMMARY | 2022-12-04 07:00 | XMS_ITS | Continuity of Care Document ---
Author Name Unknown Organization [facility] Address Unknown Care Team Providers Care Organic Chemistry Professor Name Role Phone Myra DURAN, Faiza Primary Care Physician Encounter [facility] [place] [facility] [id number] Date(s): 12/19/20 - 01/23/21 [facility] Attending Physician: Faiza Renteria MD Admitting Physician: [...] Refills 11, Tot. Refills 11, Maintenance, 10 Tanzanian STraight Catheter. Dx: Neurogenic Bladder. 6 per [...] Soft Stop, 08/03/18 10:51:49 EDT, This is [facility] generic of Epipen Start Date: 08/03/18 [...] 12/19/20 10:58:00 EDT, Route to Pharmacy Electronically, [facility]/pharmacy #[id number], Partial fill upon patient requ... [...] Refills, Maintenance, 09/26/20 13:11:00 EDT, [facility], 152.4, cm, 05/17/20 11:30:00 EST, Height Start [...] Active Left leg pain(Confirmed) 5, 6 Active *[id number] Care Partn patrice Ruthy Murphy(Confirmed) Active Spina [...]
--- OUTSIDE RECORDS SUMMARY | 2022-12-04 07:00 | XMS_ITS | Continuity of Care Document ---
Author Name Unknown Organization [facility] Address [address] [place] [address]- Care Team Providers Care Journalism Professor Name Role Phone Faiza Renteria MD Primary Care Physician [place] [facility] [place]s): 06/14/19 - 07/17/[address] [facility] Care [address] [place] [address]- [facility] Attending Physician: Arnaldo Crowley MD Admitting [...] Refills 11, Tot. Refills 11, Maintenance, 10 Bahraini STraight Catheter. Dx: Neurogenic Bladder. 6 per [...] 08/03/18 10:51:49 EDT, This is [facility] generic of Epipen Start Date: 08/03/18 Status: [...] debridement. appointment Can refill before appointment. on 07-19-19, # 15 tablet, Refills 0, Tot. Refills 0, Maintenance, Pain , Moderate, 07/15/19 15:18:00 EDT,... Start Date: 07/15/19 Status: Ordered panty liners for incontinence panty liners for incontinence, See Instructions, # 150 each, Refills 11, Tot. Refills 11, Maintenance, dx: neurogenic bladder. N31.9, 06/01/19 9:42:00 EDT, Compound Start Date: 06/01/19 Status: Ordered sertraline 50 mg oral tablet 1 tablet = 50 mg, By Mouth, Daily, # 30 tablet, 6 Refills, Maintenance, 03/09/19 11:27:00 EST, [facility]/pharmacy #1972, 152.4, cm, 03/09/19 10:07:00 [...] Refills, Maintenance, 07/05/19 11:13:00 EDT, [facility], 152.4, cm, 06/23/19 13:01:00 EDT, Height Start [...] Active Left leg pain(Confirmed) 4, 5 Active *[id number]-[facility] Partn patrice Johnna Foster(Confirmed) Active Spina bifida(Confirmed) [...]
--- OUTSIDE RECORDS SUMMARY | 2022-12-04 07:00 | XMS_ITS | Continuity of Care Document ---
Author Name Unknown Organization [facility] Address Unknown Care Team Providers Care Inspector Outside Steam Distribution Name Role Phone Myra DURAN, Faiza Primary Care Physician [place] [facility] [place] 09/12/21 [facility] Attending Physician: Not on Staff, Attending MD Admitting Physician: Christiano DURAN, Elsie Tovar Referring Physician: Bertha Mejia CNM Allergies, Adverse Reactions, Alerts Substance Reaction Severity Status ibuprofen HIVES Severe Active aspirin Active Advil Active Latex HIVES Moderate Active Tape 1 Active NSAIDs Active 1surgerical tape Immunizations Given and Recorded Vaccine Date Status Refusal Reason influenza virus vaccine, inactivated 02/22/18 Give n tetanus/diphtheria/pertussis, acel(Tdap) 02/22/18 Given Medications Catheter Supplies See Instructions, # 180 each, Refills 11, Tot. Refills 11, Maintenance, 10 Spanish STraight Catheter. Dx: Neurogenic Bladder N31.9. 6 [...] tablet, 3 Refills, Maintenance, 12/19/20 10:58:00 EDT, [facility]/pharmacy#1972, 152.4, cm, 12/19/20 9:56:00 EDT, Height Start Date: 12/19/20 Stop Date: 12/14/21 Status: Ordered traMADol 50 mg oral tablet 1 tablet = 50 mg, By Mouth, Every 8 hours, Dr. Hilton from [facility], # 90 tablet, 5 Refills, Maintenance, 01/24/21 [...] Active Left leg pain(Confirmed) 5, 6 Active *[phone] Care Partn patrice Murphy(Confirmed) Active Spina bifida(Confirmed) [...]
--- OUTSIDE RECORDS SUMMARY | 2022-12-04 07:00 | XMS_ITS | Continuity of Care Document ---
Author Name Unknown Organization [facility] Address [address] [place] [address]- Care Team Providers Care Citrus Peeler Name Role Phone Myra DRUAN, Faiza Primary Care Physician Encounter [facility] [place] Date(s): 08/16/20 - 09/15/20 [facility] [address] [place] [address]- Allergies, Adverse Reactions, Alerts Substance Reaction Severity [...] Refills 11, Tot. Refills 11, Maintenance, 10 English STraight Catheter. Dx: Neurogenic Bladder. 6 per day, 03/11/18 17:08:23 EST, Compound Start Date: 03/11/18 Status: Ordered cyclobenzaprine 5 mg oral tablet 1 tablet, By Mouth, Daily, PRN NEEDED FOR MUSCLE SPASM, # 30 tablet, 3 Refills, Acute, 06/27/20 13:13:00 EDT, [facility] 27952, 152.4, cm, 05/17/20 11:30:00 EST, Height Start [...] capsule, By Mouth, 2 times a day, by Dr Seb Hilton (the [facility]), Refills 0, Maintenance, 08/15/20 5:01:00 EDT, Partial fill upon patient request if the prescription is for a schedule IIopioid drug. Start Date: 08/15/20 Status: Ordered lidocaine 0.5% topical gel 1 application, Topically, 3 times a day, # 120 Gm, 0 Refills, Maintenance, 06/05/20 15:02:00 EDT, Gel, [facility]/pharmacy #1972, Partial fill upon patient request if the prescription is for a schedule II opioid drug., 1 application Topically 3 times a day,... Start Date: 06/05/20 Status: Ordered Poise 12 hour Heavy Duty [...] Refills, Maintenance, 03/19/20 12:59:00 EST, [facility], 152.4, cm, 12/30/19 14:27:00 EDT, Height Start Date: 03/19/20 Status: Ordered tolterodine 4 mg oral capsule, extended release 1 capsule, By Mouth, Daily, # 90 capsule, 2 Refills, Maintenance, 07/05/19 11:13:00 EDT, [facility], 152.4, cm, 06/23/19 13:01:00 EDT, Height Start Date: 07/05/19 Status: Ordered Problem List Condition Effective Dates Status Health Status Inform ant Cigarette smoker(Confirmed) 1, 2 Active Depression(Confirmed) 09/27/07 Active Family history of breast cancer(Confirmed) 3 Active 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
--- OUTSIDE RECORDS SUMMARY | 2022-12-04 07:00 | XMS_ITS | Continuity of Care Document ---
Author Name Unknown Organization [facility] Address [address] [place] [address]- Care Team Providers Care Animal Shelter Worker Name Role Phone Myra DURAN, Faiza Primary Care Physician [facility] [place] Date(s): 08/16/20 - 09/15/20 [facility] [address] [place] [address]- Allergies, Adverse Reactions, Alerts Substance Reaction Severity [...] tablet, 3 Refills, Acute, 06/27/20 13:13:00 EDT, [facility] 59296, 152.4, cm, 05/17/20 11:30:00 EST, Height Start [...] a day, by Dr Seb Hilton (the [facility]), Refills 0, Maintenance, 08/15/20 5:01:00 EDT, Partial fill upon patient request if the prescription is for a schedule IIopioid drug. Start Date: 08/15/20 Status: Ordered lidocaine 0.5% topical gel 1 application, Topically, 3 times a day, # 120 Gm, 0 Refills, Maintenance, 06/05/20 15:02:00 EDT, Gel, [facility]/pharmacy #1972, Partial fill upon patient request [...] Refills, Maintenance, 03/19/20 12:59:00 EST, [facility], 152.4, cm, 12/30/19 14:27:00 EDT, Height Start Date: 03/19/20 Status: Ordered tolterodine 4 mg oral capsule, extended release 1 capsule, By Mouth, Daily, # 90 capsule, 2 Refills, Maintenance, 07/05/19 11:13:00 EDT, [facility], 152.4, cm, 06/23/19 13:01:00 EDT, Height Start Date: 07/05/19 Status: Ordered Problem List Condition Effective Dates Status Health Status Inform ant Cigarette smoker(Confirmed) 1, 2 Active Depression(Confirmed) 09/27/07 Active Family history of breast cancer(Confirmed) 3 Active Immune to hepatitis B(Confirmed) Active Hidradenitis suppurativa(Confirmed) Active Hyperlipidemia(Confirmed) Active Neurogenic bladder(Confirmed) Active Left leg pain(Confirmed) 4, 5 Active *[id number] Care Partn er Ruthy Murphy(Confirmed) Active Spina [...]
--- OUTSIDE RECORDS SUMMARY | 2022-12-04 07:00 | XMS_ITS | Continuity of Care Document ---
Author Name Unknown Organization [facility] Address [address] [place] [address]- Care Team Providers Care Lab Systems Analyst Name Role Phone Myra DURAN, Faiza Primary Care Physician En[place] [facility] [place] Date(s): 12/29/19 - 01/28/20 [facility] [address] [place] [address]- Allergies, Adverse Reactions, Alerts Substance Reaction Severity Status ibuprofen HIVES Severe Active aspirin Active Latex HIVES Moderate Active NSAIDs Active Advil Active Tape 1 Active 1surgerical tape Immunizations [...] MUSCLE SPASM, # 30 tablet, 3 Refills, Maintenance, 10/13/19 19:13:00 EDT, [facility], 152.4, cm, 09/02/19 11:03:00 EDT, Height Start Date: 10/13/19 Status: Ordered Disposable underpads/Bed pads Disposable underpads/Bed [...] Refills, Maintenance, 07/05/19 11:13:00 EDT, [facility], 152.4, cm, 06/23/19 13:01:00 EDT, Height Start [...] Active Left leg pain(Confirmed) 4, 5 Active *[id number] Care Partn patrice Ruthy Jeffrey(Confirmed) Active Spina bifida(Confirmed) 01/21/07 Active Urinary [...]
--- OUTSIDE RECORDS SUMMARY | 2022-12-04 07:00 | XMS_ITS | Continuity of Care Document ---
Author Name Unknown Organization [facility] Address [address] [place] [address]- Care Team Providers Care Manufacturing Area Manager Name Role Phone Myra DURAN, Faiza Primary Care Physician Encounter [facility] [place] Date(s): 05/22/22 - 06/21/22 [facility]/[address] [address]- [place] Allergies, Adverse Reactions, Alerts Substance Reaction Severity Status ibuprofen HIVES Severe Active aspirin Active Advil Active Latex HIVES Moderate Active Tape 1 Active NSAIDs Active 1surgerical tape Immunizations Given and Recorded Vaccine Date Status Refusal Reason influenza virus vaccine, inactivated 02/22/18 Give n tetanus/diphtheria/pertussis, acel(Tdap) 02/22/18 Given Medications Catheter Supplies See Instructions, # 180 each, Refills 11, Tot. Refills 11, Maintenance, 10 Dominican STraight Catheter. Dx: Neurogenic Bladder N31.9. 6 per day, 05/23/22 13:06:00 EST, Compound Start Date: 05/23/22 Status: Ordered cyclobenzaprine 5 mg oral tablet 1 tablet, By Mouth, Daily, PRN NEEDED FOR MUSCLE SPASM, DO NOT TAKE TRAMADOL WHEN TAKING THIS MED, # 30 tablet, 1 Refills, Maintenance, 04/22/22 11:15:00 EST, [facility] #[id number], 152.4, cm, 04/22/22 10:29:00 EST, Height, 71.8, kg, 05/14/21... Start Date: 04/22/22 Status: Ordered Disposable underpads/Bed pads (peach or [...] 0 Refills, Soft Stop, 10/25/21 11:46:00 EDT, [facility]/pharmacy #[id number], Partial fill upon patient request [...] 04/22/22 11:15:00 EST, Route to Pharmacy Electronically, [facility] #[id number], Partial fill upon pat... Start Date: 04/22/22 [...] EST, Compound Start Date: 05/23/22 Status: Ordered Pull Ups- size medium Pull Ups- size medium, See Instructions, # 60 each, Refills 11, Tot. Refills 11, Maintenance, to use at bedtime. Dx: neurogenic bladder, 05/23/22 13:07:00 EST, Supply Start Date: 05/23/22 Status: Ordered sertraline 50 mg oral tablet 1 tablet, By Mouth, Daily, # 90 tablet, 3 Refills, Maintenance, 04/22/22 11:15:00 EST, [email or web address] #[id number], 152.4, cm, 04/22/22 10:29:00 EST, Height, 71.8, kg, 05/14/21 12:20:00 EST, Dry Weight Start Date: 04/22/22 Stop Date: 04/17/23 Status: Ordered tolterodine 4 mg oral capsule, extended release 1 capsule, By Mouth, Daily, # 90 capsule, 3 Refills, Maintenance, 04/22/22 11:15:00 EST, [email or web address] #[id number], 152.4, cm, 04/22/22 10:29:00 EST, Height, 71.8, [...] Left leg pain 3, 4 Confirmed Active *[id number] Deposition Operator Ruthy Murphy Confirmed Active Spina bifida Confirmed [...] Care Physician Member Role: PCP Address: Address: [address] [place] [address]- Care Team Related Persons Name: YANDY GORDON Name: LYDIA SANTIZO Address: [place] [address] Name: STATES, NO ONE Name: SAMEER INFANTE Address: [place] [address]
--- OUTSIDE RECORDS SUMMARY | 2022-12-04 07:00 | XMS_ITS | Continuity of Care Document ---
Author Name Unknown Organization [facility] Address Unknown Care Team Providers Care Correctional Maintenance Technician Name Role Phone Myra DURAN, Faiza Primary Care Physician ( [phone] Encounter [facility] [place] Date(s): 12/17/20 - 01/16/21 [facility] Allergies, Adverse Reactions, Alerts Substance Reaction Severity Status ibuprofen HIVES Severe Active aspirin Active Advil Active Tape 1 Active NSAIDs Active Latex HIVES Moderate Active 1surgerical tape Immunizations Given and Recorded Vaccine Date Status Refusal Reason influenza virus vaccine, inactivated 02/22/18 Give n tetanus/diphtheria/pertussis, acel(Tdap) 02/22/18 Given Medications Catheter Supplies See Instructions, # 180 units, Refills 11, Tot. Refills 11, Maintenance, 10 [place] STraight Catheter. Dx: Neurogenic Bladder. 6 per day, 03/11/18 17:08:23 EST, Compound Start Date: 03/11/18 Status: Ordered cyclobenzaprine 5 mg oral tablet 1 tablet, By Mouth, Daily, PRN NEEDED FOR MUSCLE SPASM, do not take tramadol when taking this medication, # 30 tablet, 3 Refills, Maintenance, 12/27/20 18:06:00 EDT, [facility]/pharmacy #[id number], 152.4, cm,12/19/20 9:56:00 EDT, Height Start [...] Soft Stop, 08/03/18 10:51:49 EDT, This is [facility] generic of Epipen Start Date: [...] 12/19/20 10:58:00 EDT, Route to Pharmacy Electronically, [facility]/pharmacy #[id number], Partial fill upon patient requ... [...] capsule, 2 Refills, Maintenance, 09/26/20 13:11:00 EDT, [id number], 152.4, cm, 05/17/20 11:30:00 EST, Height Start Date: 09/26/20 Status: Ordered traMADol 50 mg oral tablet 1 tablet = 50 mg, By Mouth, 3 times a day, PRN knee pain, covering for Yobani Elena from the ATC, #90 tablet, 0 Refills, Maintenance, 12/19/20 10:59:00 EDT, [facility]/pharmacy #[id number], Partial fill upon patient request [...] Active Left leg pain(Confirmed) 5, 6 Active *[phone] Care Partn patrice Ruthy Jeffrey(Confirmed) Active Spina [...]
--- OUTSIDE RECORDS SUMMARY | 2022-12-04 07:00 | XMS_ITS | Continuity of Care Document ---
Author Name Unknown Organization [facility] Address [address] [place] [address]- Care Team Providers Care Assurance Manager Insurance Name Role Phone Myra DURAN, Faiza Primary Care Physician Encounter [facility] [place] Date(s): 04/10/20 - 05/10/20 [facility] [address] [place] [address]- Allergies, Adverse Reactions, Alerts Substance Reaction Severity [...] tablet, 3 Refills, Acute, 02/14/20 12:50:00 EST, [id number], 152.4, cm, 12/30/19 14:27:00 EDT, Height Start [...] Soft Stop, 08/03/18 10:51:49 EDT, This is [facility] generic of Epipen Start Date: 08/03/18 [...] Refills, Maintenance, 03/19/20 12:59:00 EST, [id number], 152.4, cm, 12/30/19 14:27:00 EDT, Height Start Date: 03/19/20 Status: Ordered Tape (1 -Paper) See Instructions, # 5 units, Maintenance, to use with gauze to cover chronic wound of left foot., 04/07/17 13:24:55, Compound Start Date: 04/07/17 Status: Ordered tolterodine 4 mg oral capsule, extended release 1 capsule, By Mouth, Daily, # 90 capsule, 2 Refills, Maintenance, 07/05/19 11:13:00 EDT, [id number], 152.4, cm, 06/23/19 13:01:00 EDT, Height Start [...] Active Left leg pain(Confirmed) 4, 5 Active *[phone] Care Partn patrice Murphy(Confirmed) Active Spina bifida(Confirmed) [...]
[2022-12-04] MEDS: Acetaminophen 325 MG TABLET 650 MG PO (07:16)
[2022-12-04 07:21] LABS: MANUAL DIFF FLAG NO
[2022-12-04 07:22] LABS: Basophils Absolute Auto 0.1 X10*3/uL (0.0-0.2); Basophils Percent Auto 0.4 % (0-2); Eosinophils Absolute Auto 0.1 X10*3/uL (0.0-0.4); Hematocrit 45.7 % (37.0-47.0); Hemoglobin 15.5 g/dl (12.0-16.0); Imm Gran Abs Auto 0.06 X10*3/uL (0.00-0.03); Imm Gran Pct Auto 0.4 % (0.0-0.4); Lymphocytes Absolute Auto 3.5 X10*3/uL (1.2-4.9); Lymphocytes Percent Auto 24.5 % (20-40); Mean Corpuscular HGB Conc 33.9 g/dl (31.0-35.0); Mean Corpuscular Hemoglobin 31.3 pg (27.0-33.0); Mean Corpuscular Volume 92.1 fL (80.0-98.0); Mean Platelet Volume 11.1 fL (9.4-12.3); Monocytes Absolute Auto 0.8 X10*3/uL (0.1-1.2); Monocytes Percent Auto 5.9 % (2-11); Neutrophils Absolute Auto 9.6 x10*3/uL (2.0-8.3); Neutrophils Percent Auto 67.8 % (45-73); Platelet Count 304 X10*3/uL (160-400); Red Blood Count 4.96 X10*6/uL (4.20-5.50); Red Cell Distribution Width 13.2 % (11.0-16.0); White Blood Count 14.1 X10*3/uL (4.8-10.8)
[2022-12-04 07:24] LABS: Appearance Urine Clear; Color Urine Yellow; Glucose Urine UA Negative (Negative); Leukocyte Esterase Urine Large (3+) (Negative); Nitrite Urine Positive (Negative); PH 7.5 (5.0-9.0); Specific Gravity - Urine <= 1.005 (1.005-1.025); UMIC TRIGGER UACC YES; Urine Blood Moderate (2+) (Negative); Urine Ketones Negative (Negative); Urine Protein 30 (1+) mg/dL (Neg-Trace)
[2022-12-04 07:36] LABS: Bacteria Urine 2+ (None Seen); Hyaline Casts Urine 0-2 /LPF (0-2); RBC Urine 0-2 /HPF (0-2); Squamous Epithelial Cell Urine 0-2 /HPF (0-2); UACC Culture Trigger YES
[2022-12-04 07:41] LABS: Alanine Aminotransferase 8 U/L (0-31); Albumin Level 4.5 g/dL (3.5-5.0); Alkaline Phosphatase 82 U/L (39-117); Anion Gap 13 (12-20); Aspartate Amino Transferase 11 U/L (5-31); Bilirubin Total 0.3 mg/dL (0.0-1.0); Blood Urea Nitrogen 13 mg/dL (9-16); Calcium 9.6 mg/dL (8.4-10.2); Carbon Dioxide 22 mmol/L (22-29); Chloride 111 mmol/L (96-108); Creatinine Clr Calc Pharmacy 103.9; Estimated Glomerular Filt Rate > 60; Glucose Random 104 mg/dL (60-115); Lipase 22 U/L (8-78); Sodium 142 mmol/L (135-145); Total Protein 7.6 g/dL (6.5-8.0)
--- NOTE | 2022-12-04 07:44 | PC.NURSE ---
assumed care of pt at 0700. pt a&o x4, pleasant, calm, and cooperative. pt is wheelchair bound from spina bifida, however is a self. straight catheterizes self. 20G IV placed to pt's RAC, labs drawn and sent. pt at bedside. pt resting quietly, awaiting lab results. rr even/unlabored. call silva within reach.
[2022-12-04] MEDS: cefTRIAXone sodium 1 GM in 0.9 % Sodium Chloride 50 ML IV (08:28)
[2022-12-04] MEDS: iohexoL 350 MG/ML 100 ML INFUS..BTL IV (08:31)
[2022-12-04 09:30] VITALS: BP 115/78; PULSE 69; RESP 17; TEMP 37.2; O2SAT 99
== END 2022-12-04 10:27 | disposition home or self-care (01) ==
PROVIDERS: Emergency Medicine; Physician Assistant; Emergency Provider Emergency Medicine; PCP Internal Medicine
DX: N39.0 Urinary tract infection, site not specified (principal); B96.20 Unspecified Escherichia coli [E. coli] as the cause of diseases classified elsewhere; K59.00 Constipation, unspecified; R50.9 Fever, unspecified; R93.5 Abnormal findings on diagnostic imaging of other abdominal regions, including retroperitoneum; Q05.9 Spina bifida, unspecified; F12.90 Cannabis use, unspecified, uncomplicated
CPT/HCPCS: 36415; 74177; 80053; 81001; 81003; 81025; 83605; 83690; 85025; 87040; 87086; 87088; 87186; 96365; 99284; J0696; Q9967

== ENCOUNTER 2022-12-16 09:06 | Outpatient (AMB) | payer OTHER, SELFPAY ==
--- NOTE | 2022-12-16 09:08 | MHC.OFFVIS ---
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 Screen Operator Required: No Accompanied by: Unknown Allergies NSAIDS (Non-Steroidal Anti-Inflamma [NSAIDS (NON-STEROIDAL ANTI-INFLAMMA] Allergy (Severe, Verified 12/16/22 17:49) ANAPHYLAXIS latex [LATEX] Allergy (Unknown, Verified 12/16/22 17:49) ANAPHYLAXIS Medication List - Last Reconciled 12/16/22 by CHAI Foley-GENNY clotrimazole 1% appl topical cyclobenzaprine 10 mg PO BEDTIME desvenlafaxine succinate ER 25 mg PO DAILY sulfamethoxazole-trimethoprim 800-160 mg (Bactrim DS) 1 tab PO BID 14 days tramadol 50 mg PO TID PRN HPI HPI Comments History of Present Illness Details Yanet is a very pleasant 42-year-old female patient of Dr. Renteria who is accompanied by her partner at todays visit. She has a past medical history of spina bifida, constipation, She presents to the office today as a new patient for abnormal CT findings. In discussion with the patient today she reports seeking emergency room care approximately 2 weeks ago for hematuria, cloudy urine, dysuria, and flank pain bilaterally radiating to lower abdominal area, bilateral flank pain right side greater than left. She discusses trialing herbal remedies and OTC with little to no relief for a few weeks prior to ER visit. 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 She discusses following up with a urologist for many years however after her teenage years had not follow-up with a urologist. She reports obtaining her catheter supplies through [facility] and with PCP. She reports to be performing CIC every 3-4 hours. She currently reports feeling bladder pressure however she denies hematuria, flank pain, fever, and or chills. She reports having completed antibiotic therapy given by ER physician. In office urinalysis results reviewed with the patient today. CT findings reviewed with the patient and her partner today. Irregularly thickened urinary bladder with a suggestion of ulcerating mass and left perivesicle infiltration along the leftlateral wall. Although perhaps due to a cystitis, bladder carcinoma is to be excluded. Urologic correlation is recommended. Small right pleural effusion. Left adrenal 13 mm mass is statistically likely to reflect an adenoma. Marked fecal distention of the rectum and fecal filling of the entire colon other than a short segment of collapsed sigmoid. Spina bifida occulta at the lumbosacral level and right spondylolysis at L5. Enlarged heterogeneous uterus with a dominant fibroid in the right side of the fundus and heterogeneous myometrium on the left, either on the basis of small fibroids or perhaps adenomyosis. 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 She discuss having had a recent pap smear. Cystoscopy performed in office today. Grade 1-2 trabeculations noted. Extensive posterior left wall erythema. No clear papillary tumor noted. Discussed at length risks and benefits of cystoscopy with bladder biopsy for further assessment and evaluation. When asked patient does report previous cigarette smoking history however quit approximately 1 year ago. She does however endorse to smoking recreational marijuana daily. She denies any known chemical exposure. [facility] Medical History Spina bifida Social History Alcohol intake: current Alcohol intake frequency: holidays/special occasions only Substance Use Type: Marijuana Review of Systems Const All systems reviewed & are unremarkable except as noted in HPI and below Eyes Reports no additional complaints ENT Reports no additional complaints Card Reports no additional complaints Resp Reports no additional complaints GI Reports as per HPI Reports as per HPI Musc Reports as per HPI Neuro Reports as per HPI Psych Reports no additional complaints Endo Reports no additional complaints Hai/Lymph Reports no additional complaints Aller/Immun Reports no additional complaints Physical Exam Const General: cooperative, healthy appearing, comfortable, no acute distress, well developed, alert and awake Orientation/consciousness: patient oriented x3 Limitations: wheelchair HEENT Head: Yes normal to inspection, Yes normocephalic and Yes atraumatic Eyes General: appearance normal, both eyes and all related structures Neck Neck: Yes normal visual inspection and Yes trachea midline Chest Chest palpation & inspection: normal inspection of the chest Resp Effort & Inspection: normal respiratory effort Cardio Rate: regular rate GI Inspection: Yes normal to inspection General: Yes no CVA tenderness External Female Exam: normal external appearance Speculum Exam - Vagina: normal appearance of the vagina Back/Spine/Pelvis Back: no CVA tenderness Skin General skin exam: no rashes or lesions noted Neuro General: patient oriented x3 Psych Appearance: grossly normal Mental Status: mental status grossly normal Speech and movement: Clear speech present Affect: normal affect Attitude: cooperative Thought process: Normal thought process present Thought content: Normal thought content present Insight: Good insight present (Psych) Judgement: Good judgement present (Psych) Office Procedures Cystoscopy Consent Discussed risk and benefit or proposed procedure with the patient. Information consent for procedure given to the patient. Discussed technical aspects, risks, benefits and alternatives in full. Addressed all of the patient's questions and concerns regarding the procedure. The patient demonstrated knowledge and understanding. They wish to proceed with this procedure. Preparation The patient was prepped in the usual manner. A speech pathology assistant was present and in the room. Genitalia was prepped with betadine solution in a sterile manner. Lidocaine Jelly 2% was placed into the urethra and 16Fr flexible Olympus cystoscope was inserted into the meatus after adequate lubrication. [id number] DISPOSABLE SCOPE URO-G FLEXIBLE SCOPE Procedure code (CPT) selection complete Cystoscopy Consent Discussed risk and benefit or proposed procedure with the patient. Information consent for procedure given to the patient. Discussed technical aspects, risks, benefits and alternatives in full. Addressed all of the patient's questions and concerns regarding the procedure. The patient demonstrated knowledge and understanding. They wish to proceed with this procedure. Preparation The patient was prepped in the usual manner. A speech pathology assistant was present and in the room. Genitalia was prepped with betadine solution in a sterile manner. Lidocaine Jelly 2% was placed into the urethra and 16Fr flexible Olympus cystoscope was inserted into the meatus after adequate lubrication. Procedure Meatus normal Urethra anterior posterior urethra normal Bladder examination with retroflexion of cystoscope Bladder Orifices normal shape and position Bladder Capacity medium Trabeculations grade 1-2 Cellule Formation none Diverticulum Formation none Mucosal Erythema extensive superior left wall with debris Bladder Tumor no clear papillary tumor [id number] DISPOSABLE SCOPE URO-G FLEXIBLE SCOPE Procedure code (CPT) selection complete Office Meds lidocaine HCl 2 % mucosal jelly in applicator Performing Provider: REINALDO Foley Performing [facility] Administered by: Cesar Ni LPN on 12/16/22 09:47 Dose Route Admin Location Dispensed Lot Number Expiration Date [facility] 10 mL intra-urethral 10 mL nitrofurantoin monohydrate/macrocrystals 100 mg capsule Performing Provider: REINALDO Foley Performing Location: [facility] Administered by: Cesar Ni LPN on 12/16/22 09:47 Dose Route Admin Location Dispensed Lot Number Expiration Date [facility] 100 mg PO 1 cap Results AMB Urinalysis, Automated UA Leukoctes 15 Bacilio/uL Last Edit by Burak Townsendeverton on 12/16/22 09:45 UA Nitrite Negative Last Edit by Gagenathalieneelima [place]send[place]ton on 12/16/22 09:45 UA Urobilinogen 0.2 mg/dL Last Edit by Burak [place]send[place] on 12/16/22 09:45 UA Protein 30 mg/dL Last Edit by Gagenathalieneelima [place] on 12/16/22 09:45 UA pH 5.5 Last Edit by Gagenathalieneelima [place] on 12/16/22 09:45 UA Blood 200 Trevin/uL Last Edit by Gagenathalieneelima [place] on 12/16/22 09:45 UA Specific Omega 1.030 Last Edit by Gagengozi Crayeverton on 12/16/22 09:45 UA Ketone Positive Last Edit by Gagenathalieneelima [place] on 12/16/22 09:45 UA Bilirubin 0 mg/dL Last Edit by Gagengozi [place]ton on 12/16/22 09:45 UA Glucose 0 mg/dL Last Edit by Gagengozi Caryeverton on 12/16/22 09:45 Results Reviewed Results Reviewed: Laboratory Last Values Urine pH (Auto) 5.5 12/16/22 09:24 Specific Omega (Auto) 1.030 12/16/22 09:24 Urine Protein (Auto) 30 mg/dL 12/16/22 09:24 Glucose (UA)(Auto) 0 mg/dL 12/16/22 09:24 Urine Ketones (Auto) Positive 12/16/22 09:24 Urine Blood (Auto) 200 Trevin/uL 12/16/22 09:24 Urine Nitrite (Auto) Negative 12/16/22 09:24 Urine Bilirubin (Auto) 0 mg/dL 12/16/22 09:24 Urine Urobilinogen (Auto) 0.2 mg/dL 12/16/22 09:24 Leukocyte Esterase (Auto) 15 Bacilio/uL 12/16/22 09:24 Date of Service: 12/04/22 EXAMINATION: CT ABDOMEN AND PELVIS WITH CONTRAST FINDINGS: A shunt catheter extends from above the level of this abdominal CT and terminates in the right upper quadrant. No collection is detected at the tip of the catheter. LUNG BASES: There is a small right pleural effusion. LIVER, GALLBLADDER, AND BILIARY TREE: The liver is normal in size, shape, and attenuation. No focal hepatic lesion or biliary ductal dilatation is present. The gallbladder is unremarkable with no evidence of radiopaque gallstones, gallbladder wall thickening, or obvious pericholecystic inflammatory changes. PANCREAS: There is a 13 mm low-density mass in the medial limb of the left adrenal gland. SPLEEN: Unremarkable. ADRENAL GLANDS: Unremarkable. KIDNEYS AND URETERS: The kidneys are normal in size, shape, and attenuation. No hydronephrosis, hydroureter, or calculi seen. No perinephric stranding. BLADDER: The urinary bladder is incompletely distended but markedly irregular and thickened, and there is a suggestion of an ulcerated intraluminal mass along the left lateral wall, with the wall thickened up to 20 mm at this site. There is some infiltration of the adjacent left lateral perivesical fat. GASTROINTESTINAL TRACT: There is marked fecal distention of the rectum, with a luminal diameter measuring up to 7.1 cm. Fecal material also fills the cecum, ascending, transverse and descending colon. No dilated small bowel loops are evident. The appendix is unremarkable. ABDOMINAL WALL: No significant hernia is appreciated. LYMPH NODES: Normal. Nonenlarged bilateral inguinal nodes are present. A 6 mm left external iliac lymph node does not meet size criteria for adenopathy but is notably at the level of the left bladder wall irregularity VASCULAR: Unremarkable. PELVIC VISCERA: The uterus is enlarged, noting a 37 mm ovoid mass in the right side of the myometrium and considerable heterogeneity of the left side of the metacarpal myometrium at the uterine fundus. Endocervical nabothian cyst formation is present. A crenulated follicle is evident in the left adnexa and a few punctate calcifications in the right adnexa, but no suspicious adnexal masses are evident. OSSEOUS STRUCTURES: Right-sided spondylolysis is evident at L5. Spina bifida occulta is evident at the lumbosacral level. IMPRESSION: 1. Irregularly thickened urinary bladder with a suggestion of an ulcerating mass and left perivesicle infiltration along the left lateral wall. Although perhaps due to a cystitis, bladder carcinoma is to be excluded. Urologic correlation is recommended. 2. Small right pleural effusion. 3. Left adrenal 13 mm mass is statistically likely to reflect an adenoma. 4. Marked fecal distention of the rectum and fecal filling of the entire colon other than a short segment of collapsed sigmoid. 5. Spina bifida occulta at the lumbosacral level and right spondylolysis at L5. 6. Enlarged heterogeneous uterus with a dominant fibroid in the right side of the fundus and heterogeneous myometrium on the left, either on the basis of small fibroids or perhaps adenomyosis. 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 Assessment & Plan Assessment & Plan (1) Microhematuria: Code(s): R31.29 - Other microscopic hematuria (2) Neurogenic bladder: Code(s): N31.9 - Neuromuscular dysfunction of bladder, unspecified (3) Recurrent UTI: Code(s): N39.0 - Urinary tract infection, site not specified (4) Cystitis: Code(s): N30.90 - Cystitis, unspecified without hematuria Plan: Risks, benefits and alternatives to therapy were discussed. These include but are not limited to infection, bleeding, damage to local organs and tissues, need for further interventions. ? Anesthetic risks regarding cardiac arrhythmia, blood clots, and potential mortality were discussed. The patient understands the typical recovery time and the outpatient nature of the procedure. After consideration of these risks the patient gives full informed consent and they wish to move ahead with the procedure. Plan In office urinalysis results reviewed with the patient today; as noted above; will send for urine cytology. Discussed recent CT finding results with the patient and her partner today; as noted above. Continue clean intermittent catheterization every 3-4 hours. Start Bactrim as discussed and prescribed. Discussed at length risks and benefits of cystoscopy with bladder biopsy for further assessment evaluation. All questions were answered. Continue to follow up with rn obgyn regarding CT findings; patient aware Educated, instructed, encouraged on the importance of drinking plenty of water daily. Discussed and stressed the importance of limiting/quitting smoking for overall health and well-being. Will schedule for cystoscopy bladder biopsy with Dr. Barbosa as discussed. Orders: Orders AMB Urinalysis Automated Today Z13.9 - Encounter for screening, unspecified Urine Cytology Today Z13.9 - Encounter for screening, unspecified AMB Cystoscopy Today Z13.9 - Encounter for screening, unspecified Medications: New sulfamethoxazole-trimethoprim 800-160 mg (Bactrim DS) 1 tab PO BID 14 days 28 tabs 0RF N39.0 - Urinary tract infection, site not specified Patient Instructions: The patient had an opportunity to ask questions regarding the treatment plan. All questions were answered. Physical exam, labs, and imaging were discussed and reviewed in detail. As well as risks, benefits, and discussion of treatment choices. No major barriers to understanding were identified. The patient expressed understanding and agreement with the above treatment plan. The patient was made aware they should contact our office by phone for worsening of their current condition, the appearance of new symptoms, or with any questions or concerns. Compliance is encouraged with any medications and follow up testing that is ordered. It is a privilege to be allowed the opportunity to participate in? your urological care.? Again, if you have any questions or concerns If you have any questions or concerns please do not hesitate to contact me. The office is [phone]. This note is constructed using voice recognition software. While every effort has been made to ensure accuracy combiner errors may have been included. Yours sincerely, REINALDO Foley Coding Level of Care Code New Pt Level 4 (22517) Diagnoses Microhematuria R31.29 Neurogenic bladder N31.9 Recurrent UTI N39.0 Cystitis N30.90 CPT Codes Cystoscopy - CPT: 37206-[id number] ([id number]) Cystoscopy - CPT: 65822-[id number] ([id number])
== END 2022-12-16 10:26 | disposition home or self-care (01) ==
PROVIDERS: PCP Internal Medicine; Visit Provider Nurse Practitioner Family
DX: R31.29 Other microscopic hematuria (principal); N31.9 Neuromuscular dysfunction of bladder, unspecified; N39.0 Urinary tract infection, site not specified; N30.91 Cystitis, unspecified with hematuria; Z13.9 Encounter for screening, unspecified
CPT/HCPCS: 52000; 99204

== ENCOUNTER 2022-12-16 09:06 | Outpatient (REF) | payer OTHER, SELFPAY ==
[2022-12-16 17:37] LABS: Urine Cytology See Pathology rpt
== END 2022-12-16 09:07 | disposition home or self-care (01) ==
LOC: HO.LNP 09:06
PROVIDERS: PCP Internal Medicine; Visit Provider Nurse Practitioner Family
DX: R31.29 Other microscopic hematuria (principal); N31.9 Neuromuscular dysfunction of bladder, unspecified; N30.90 Cystitis, unspecified without hematuria
CPT/HCPCS: 52000; 81003; 88112

== ENCOUNTER 2023-01-05 12:10 | Day surgery (SDC) | payer OTHER, SELFPAY ==
[2023-01-01 10:43] VITALS: BMI 30.3
--- NOTE | 2023-01-01 12:21 | P.CONAN_ITS ---
Documented by User: Nella Simmons NP 01/01/23 12:22 HPI - Anesthesia Eval Consult details Narrative: 42yo F for Cystoscopy & Bladder Biopsy Multiple surgeries for spina bifida PMFSH Active Problems Active Problems: All Active Problems (Updated 01/01/23 @ 10:43 by Anuja Mitchell RN) Cystitis (Acute) Recurrent UTI (Acute) Neurogenic bladder (Acute) Microhematuria (Acute) Past Medical History Medical History (Updated 01/01/23 @ 10:43 by Anuja Mitchell RN) Fatty liver Recurrent UTI (urinary tract infection) Neurogenic bladder Spina bifida Surgical History Surgical History (Updated 01/05/23 @ 13:02 by Catherine Phelps RN) History of ventriculoperitoneal shunting Hx of section History of surgery Social History Social History 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 Are you a primary primary care nurse to a significant other at home: No Do you presently have visiting nurse or other home services: 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 If so, by whom?: No Are you DNR?: No Advance Directives: No Advance Directives Information Provided: Yes (brochure mailed) Advance Directives on File: No Recently lost weight without trying: No Eating poorly because of decreased appetite: No Nutrition Risks: No Nutritional Risk Patient : No FDLMP: 12/28/22 : No Poor oral hygiene: No Meds Allergies Allergy/AdvReac Type Severity Reaction Status Date / Time latex [LATEX] Allergy Severe ANAPHYLAXIS Verified 01/01/23 10:26 NSAIDS (Non-Steroidal Allergy Severe ANAPHYLAXIS Verified 12/16/22 17:49 Anti-Inflamma [NSAIDS (NON-STEROIDAL ANTI-INFLAMMA] Home Medications Medication Instructions Recorded Confirmed Last Taken Type clotrimazole 1 % topical cream 1 appl topical DAILY 12/16/22 01/01/23 Unknown History cyclobenzaprine 10 mg tablet 10 mg PO BEDTIME 12/16/22 01/01/23 Unknown History desvenlafaxine succinate 25 mg 25 mg PO DAILY 12/16/22 01/01/23 Unknown History tablet,extended release 24 hr tramadol 50 mg tablet 50 mg PO TID PRN Pain 12/16/22 01/01/23 Unknown History Exam Exam Date and Time: January 01, 2023 1221 Height,Weight and Vital Signs: Height 5 ft Weight 70.307 kg Pertinent Lab Results Pertinent Lab Results: Laboratory Tests 12/04/22 07:09 WBC 14.1 H Hgb 15.5 Hct 45.7 Plt Count 304 Sodium 142 Potassium 4.0 Chloride 111 H Carbon Dioxide 22 BUN 13 Creatinine 0.63 Assessment and Plan Assessment Anesthesia Assessment: Chart Reviewed Documented by User: David Mata MD 01/05/23 13:56 [facility] Past Medical History Medical History (Updated 01/01/23 @ 10:43 by Anuja Mitchell RN) Fatty liver Recurrent UTI (urinary tract infection) Neurogenic bladder Spina bifida Functional capacity: uses cane/walker Patient : No Family History Family history of problems with anesthesia: No Surgical History Surgical History (Updated 01/05/23 @ 13:02 by Catherine Phelps RN) History of ventriculoperitoneal shunting Hx of section History of surgery History of Problems with Anesthesia: No Social History Social History 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 Are you a primary primary care nurse to a significant other at home: No Do you presently have visiting nurse or other home services: 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 If so, by whom?: No Are you DNR?: No Advance Directives: No Advance Directives Information Provided: Yes (brochure mailed) Advance Directives on File: No Recently lost weight without trying: No Eating poorly because of decreased appetite: No Nutrition Risks: No Nutritional Risk Patient : No FDLMP: 12/28/22 : No Poor oral hygiene: No Meds Allergies Allergy/AdvReac Type Severity Reaction Status Date / Time latex [LATEX] Allergy Severe ANAPHYLAXIS Verified 01/01/23 10:26 NSAIDS (Non-Steroidal Allergy Severe ANAPHYLAXIS Verified 12/16/22 17:49 Anti-Inflamma [NSAIDS (NON-STEROIDAL ANTI-INFLAMMA] Home Medications Medication Instructions Recorded Confirmed Last Taken Type clotrimazole 1 % topical cream 1 appl topical DAILY 12/16/22 01/01/23 Unknown History cyclobenzaprine 10 mg tablet 10 mg PO BEDTIME 12/16/22 01/01/23 Unknown History desvenlafaxine succinate 25 mg 25 mg PO DAILY 12/16/22 01/01/23 Unknown History tablet,extended release 24 hr tramadol 50 mg tablet 50 mg PO TID PRN Pain 12/16/22 01/01/23 Unknown History Exam Airway Mallampati Class: I TM Dist: >3cm Neck ROM: Full Loose/Missing/Broken Teeth: No Heart: ok Lungs: ok Assessment and Plan Final Anesthetic Review Family History of Problems with Anesthesia: No History of Problems with Anesthesia: No NPO: Yes ASA Class: III Final Preanesthetic Review: No Changes in Pt Med Stat, Meds/Allgs Chart Reviewed, Consent Obtained/Reviewed and Anes Risks/Benef Reviewed Patient Risk: Intermediate Procedure Risk: Low Anesthetic Plan Anesthetic Plan: GA and Agree w/ Assess. and Plan Disposition: Standard PACU
[2023-01-05] VITALS (8 sets, daily range): BP systolic 107–130; BP diastolic 69–82; PULSE 64–93; RESP 16–20; TEMP 36.2–37.2; O2SAT 98–100
[2023-01-05 13:16] LABS: UPreg QC Valid YES; Urine Pregnancy NEGATIVE (NEGATIVE)
[2023-01-05] MEDS: Lactated Ringers 1,000 ML 100 ML IVCONT (13:19)
--- NOTE | 2023-01-05 13:35 | MHC.SHP ---
Pre-Procedural Eval Section A Date of Service: 01/05/23 The patient is an INPATIENT: No Changes since office visit: No Cold of Flu in the past 2 weeks, No New Medical Problems, No Changes in Medication and No Patient answered all questions The History & Physical has been completed within 30 days and I have reviewed it.: Yes Section B Chief Complaint: Cystitis, unspecified without hematuria Details of Present Illness: CP with neurogenic bladder Relevant Family History (Specify if Yes): No Relevant Social History: None Present Medications: see Short Stay Collaborative assessment Medical History: No relevant PMH History of Previous Operations: No relevant previous surgery Allergies: Allergies Allergy/AdvReac Type Severity Reaction Status Date / Time latex [LATEX] Allergy Severe ANAPHYLAXIS Verified 01/01/23 10:26 NSAIDS (Non-Steroidal Allergy Severe ANAPHYLAXIS Verified 12/16/22 17:49 Anti-Inflamma [NSAIDS (NON-STEROIDAL ANTI-INFLAMMA] Review of Systems Sugical H&P ROS: Negative: Constitution, Cardiovascular, Respiratory, Neurological, Psychiatric, Hem-Onc, Allergic/Immunologic, Gastrointestinal, Genitourinary, Musculoskeletal, Integumentary, Endocrine and Eyes/Ears/Nose/Throat Exam Surgical H&P Exam: Normal: HEENT, Normal: Heart, Normal: Lungs, Normal: Extremities, Normal: Abdomen, Normal: Skin and Normal: Neurological Plan Diagnosis/Plan: Unchanged (cystoscopy bladder biopsy with fulgeration) I have reviewed the history and physical and performed a pertinent physical examination on my patient. No changes have occurred unless specified. Time Spent With Patient Time: Total time managing care of this patient today ____ minutes.
--- NOTE | 2023-01-05 14:41 | W.PM.OPN ---
Operative Note Operative Note Date of Service: 01/05/23 Narrative: PreOperative Diagnosis: cystitis Post Operative Diagnosis: cystitis Procedure: cystoscopy, bladder biopsy, fulguration Surgeon: Dr Marcus Barbosa Anesthesia: LMA Indications for procedure: Neurogenic bladder with CIC longstanding. Here for cystoscopy, bladder biopsy. Evaluation. Procedure: After informed consent was verified the patient was brought to the operating room and placed in a supine position. Anesthesia was administered per protocol. The patient was placed in modified dorsal lithotomy position and prepped and draped in a sterile fashion. Safety pause time-out was performed. Antibiotics being given. Cystoscopy was performed. Significant improvement in healing. Cystitis predominantly resolved around most of bladder. Sidewall area of dystrophic calcification. Biopsies taken around the area of dystrophic calcification. Highly suspicious for reactive process. Random biopsy taken posterior wall. All areas fulgurated. The patient tolerated the procedure well. They were extubated in operating room and transferred in stable conditions recovery area. Pathology: Bladder biopsies Drains: None
[2023-01-05] MEDS: oxyCODONE HCl Immed Release 5 MG TABLET PO (14:51)
[2023-01-05] MEDS: fentaNYL citrate/PF 100 MCG/2 ML VIAL 50 MCG IVPUSH ×2 (14:52→15:00)
== END 2023-01-05 16:02 | disposition home or self-care (01) ==
PROVIDERS: Nurse Practitioner; PCP Internal Medicine; Visit Provider Urology
PROC: (CPT 52204; principal; 2023-01-05 13:20)
DX: N30.90 Cystitis, unspecified without hematuria (principal); N31.9 Neuromuscular dysfunction of bladder, unspecified; K59.04 Chronic idiopathic constipation; Q05.9 Spina bifida, unspecified; Z79.899 Other long term (current) drug therapy; Z99.89 Dependence on other enabling machines and devices; Z88.8 Allergy status to other drugs, medicaments and biological substances; Z91.040 Latex allergy status; F12.90 Cannabis use, unspecified, uncomplicated; Z98.890 Other specified postprocedural states
CPT/HCPCS: 52204; 81025; 88305; 88341; 88342; 88360; J1956; J3010

== ENCOUNTER → 2023-01-05 12:10 | Outpatient (BNV) | payer OTHER, SELFPAY | PROVIDERS: PCP Internal Medicine; Visit Provider Urology | DX: N30.90 Cystitis, unspecified without hematuria (principal); N31.9 Neuromuscular dysfunction of bladder, unspecified | CPT/HCPCS: 52204 ==

== ENCOUNTER 2023-01-20 13:47 | Outpatient (AMB) | payer OTHER, SELFPAY ==
--- NOTE | 2023-01-20 13:49 | A.OFFVIS_ITS ---
Intake Intake Visit Reasons: Biopsy results Intake Note: Patient presents today for a follow-up on Biopsy Results: Meds- None Allergies to Antibiotic- No Known Allergies Blood Thinner- None Unable to Void Radio Reporter Required: No Accompanied by: Significant Other Allergies latex [LATEX] Allergy (Severe, Verified 01/20/23 22:59) ANAPHYLAXIS NSAIDS (Non-Steroidal Anti-Inflamma [NSAIDS (NON-STEROIDAL ANTI-INFLAMMA] Allergy (Severe, Verified 01/20/23 22:59) ANAPHYLAXIS Medication List - Last Reconciled 01/20/23 by REINALDO Foley clotrimazole 1% 1 appl topical DAILY cyclobenzaprine 10 mg PO BEDTIME desvenlafaxine succinate ER 25 mg PO DAILY sulfamethoxazole-trimethoprim 800-160 mg (Bactrim DS) 1 tab PO BID 14 days sulfamethoxazole-trimethoprim 800-160 mg (Bactrim DS) 1 tab PO BID 14 days tramadol 50 mg PO TID PRN HPI HPI Comments History of Present Illness Details Yanet is a very pleasant 42-year-old female patient of Dr. Renteria who is accompanied by her partner at todays visit. She has a past medical history of spina bifida, and constipation. She presents to the office today for follow-up. Patient was seen in the office approximately 1 month ago as a new patient for abnormal CT findings. Patient seeked emergency room care at [facility] on 12/04/22 for ongoing hematuria, cloudy urine, dysuria, and bilateral flank pain radiating to her lower abdominal area right side greater than left in the setting of longstanding CIC. A CT of the abdomen was ordered and performed noting irregularly thickened urinary bladder with suggestion of ulcerating mass on left perivesical infiltration along the left lateral wall. Although perhaps due to a cystitis, bladder carcinoma is to be excluded. Urologic correlation is recommended. Small right pleural effusion. Left adrenal 13 mm mass is statistically likely to reflect an adenoma. Marked fecal distention of the rectum and fecal filling of the entire colon other than a short segment of collapsed sigmoid. Spina bifida occulta at the lumbosacral level and right spondylolysis at L5. Enlarged heterogeneous uterus with a dominant fibroid in the right side of the fundus and heterogeneous myometrium on the left, either on the basis of small fibroids or perhaps adenomyosis. TRANSFUSION NURSE correlation and management are recommended. Patient was seen in the office approximately 1 month ago at which time an in office cystoscopy was performed noting Grade 1-2 trabeculations noted. Extensive posterior left wall erythema. No clear papillary tumor noted. Recommendations were made for cystoscopy with bladder biopsy in the OR with Dr. Barbosa. Patient is status post cystoscopy bladder biopsy with Dr. Barbosa on 01/05/23. Recent bladder biopsy results reviewed with the patient and her partner today. Highly atypical urothelium with squamous differentiation, and fragments of necrotic tissue. Discussed at length diagnosis and consultation for cystectomy with urinary diversion. Patient with a previous smoking history however quit approximately 1 year ago. She does endo rse to smoking recreational marijuana daily. When asked she reports significant improvement in lower urinary tract symptoms however does continue with bladder pressure. She otherwise denies hematuria, foul smelling urine, flank pain, fever, and or chills. [facility] Medical History (Updated 01/20/23 @ 14:34 by CHAI Foley-) Fatty liver Recurrent UTI (urinary tract infection) Neurogenic bladder Spina bifida Surgical History (Updated 01/05/23 @ 13:02 by Catherine Phelps RN) History of ventriculoperitoneal shunting Hx of section History of surgery Social History Household Members Other:: [employer] Are you a primary career development coordinator to a significant other at home: No Do you presently have visiting nurse or other home services: Yes ([employer]) Alcohol intake: current Alcohol intake frequency: holidays/special occasions only Patient Tobacco Use Status: Former Tobacco user Quit Date: 2020 Tobacco use type: Cigarette Years Smoked: 8 Substance Use Type: Marijuana Assessment & Plan Assessment & Plan (1) Squamous cell carcinoma of bladder: Code(s): C67.9 - Malignant neoplasm of bladder, unspecified (2) Cystitis: Code(s): N30.90 - Cystitis, unspecified without hematuria (3) Recurrent UTI: Code(s): N39.0 - Urinary tract infection, site not specified (4) Neurogenic bladder: Code(s): N31.9 - Neuromuscular dysfunction of bladder, unspecified Plan Recent pathology results reviewed with the patient today; as noted above. Discussed cystectomy with urinary diversion at length. Will refer to Dr. Hull as discussed for further assessment and evaluation. Discussed and stressed the importance of limiting recreational marijuana use for overall health and well-being. Discussed, educated, and encouraged to continue drinking plenty of water daily. All questions were answered. Patient will call office for follow-up once she has had her consultation with Dr. Hull. Orders: Referrals Urology Referral C67.9 - Malignant neoplasm of bladder, unspecified, N30.90 - Cystitis, unspecified without hematuria, N31.9 - Neuromuscular dysfunction of bladder, unspecified, N39.0 - Urinary tract infection, site not specified Medications: New sulfamethoxazole-trimethoprim 800-160 mg (Bactrim DS) 1 tab PO BID 28 tabs 0RF 14 days N39.0 - Urinary tract infection, site not specified Discontinued sulfamethoxazole-trimethoprim 800-160 mg (Bactrim DS) Discontinued Reason: Patient Completed Course 1 tab PO BID 14 days 28 tabs 0RF sulfamethoxazole-trimethoprim 800-160 mg (Bactrim DS) Discontinued Reason: Patient Completed Course 1 tab PO BID 14 days 28 tabs 0RF N39.0 - Urinary tract infection, site not specified Patient Instructions: The patient had an opportunity to ask questions regarding the treatment plan. All questions were answered. Physical exam, labs, and imaging were discussed and reviewed in detail. As well as risks, benefits, and discussion of treatment choices. No major barriers to understanding were identified. The patient expressed understanding and agreement with the above treatment plan. The patient was made aware they should contact our office by phone for worsening of their current condition, the appearance of new symptoms, or with any questions or concerns. Compliance is encouraged with any medications and follow up testing that is ordered. It is a privilege to be allowed the opportunity to participate in? your urological care.? Again, if you have any questions or concerns If you have any questions or concerns please do not hesitate to contact me. The office is [phone]. This note is constructed using voice recognition software. While every effort has been made to ensure accuracy sales assistant errors may have been included. Yours sincerely, Trupti Carlisle, [employer] Coding Level of Care Code Est Pt Level 4 (85945) Diagnoses Squamous cell carcinoma of bladder C67.9 Cystitis N30.90 Recurrent UTI N39.0 Neurogenic bladder N31.9
== END 2023-01-20 15:17 | disposition home or self-care (01) ==
PROVIDERS: PCP Internal Medicine; Visit Provider Nurse Practitioner Family
DX: C67.8 Malignant neoplasm of overlapping sites of bladder (principal); N30.90 Cystitis, unspecified without hematuria; N39.0 Urinary tract infection, site not specified; N31.9 Neuromuscular dysfunction of bladder, unspecified
CPT/HCPCS: 99214

== ENCOUNTER → 2023-01-20 13:47 | Outpatient (BNVA) | payer OTHER, SELFPAY | PROVIDERS: PCP Internal Medicine; Visit Provider Nurse Practitioner Family | DX: N30.90 Cystitis, unspecified without hematuria (principal); N39.0 Urinary tract infection, site not specified; N31.9 Neuromuscular dysfunction of bladder, unspecified; C67.9 Malignant neoplasm of bladder, unspecified | CPT/HCPCS: 99212 ==